=== PATIENT | male | born 1940 | race Caucasian/White ===

== ENCOUNTER 2016-11-11 17:28 | Inpatient (IN) | payer OTHER ==
[~2016-11-11] VITALS: Ht 172.7 cm; Wt 93.6 kg
[2016-11-11] VITALS (7 sets, daily range): BP systolic 114–139; BP diastolic 66–86; PULSE 94–120; TEMP 36.4–36.5; O2SAT 94–99; Ht 172.7 cm; Wt 93.6 kg
[2016-11-11] MEDS ORDERED: FUROSEMIDE 40 MG/4 ML VIAL IV STA (17:39)
[2016-11-11] MEDS ORDERED: NITROGLYCERIN OINT 2% 1GM PACKET EXT STA (17:39)
[2016-11-11] MEDS ORDERED: NITROGLYCERIN OINT 2% 1GM PACKET ONE (17:43)
[2016-11-11] MEDS ORDERED: ONDANSETRON INJ 2 MG/ML 2 ML VIAL IV STA (17:44)
[2016-11-11] MEDS ORDERED: CLOPIDOGREL BISULFATE 300 MG TAB PO STA (17:47)
[2016-11-11] MEDS ORDERED: ASPIRIN 81 MG CHEW PO STA (17:47)
--- NOTE | 2016-11-11 17:50 | DIAGNOSTIC IMAGING REPORT ---
CHEST ONE VIEW PORTABLE CLINICAL HISTORY: Cardiogenic chest pain COMPARISON STUDY: No previous studies for comparison. FINDINGS: There are postsurgical changes of a midline sternotomy. There are overlying cardiac electrodes. There are bilateral pulmonary airspace opacities, likely representing pulmonary edema. There is blunting of the left lateral costophrenic angle.[ IMPRESSION: Extensive bilateral pulmonary edema pattern Electronically signed by: Luke Smith M.D. 11/11/2016 5:48 PM Dictated Date/Time: 11/11/2016 5:47 PM
[2016-11-11] MEDS ORDERED: MoRPHine SULFATE 4 MG/ML 1 ML CARP\\VIAL IV STA (17:52)
[2016-11-11 17:56] LABS: BASO % 0.5 %; BASO ABS # 0.08 K/uL (0-0.2); COMPLETE YES; EOS % 1.6 %; HEMATOCRIT 45.2 % (42-52); IG% 0.4 %; LYMPH % 24.1 %; LYMPH ABS # 3.89 K/uL (1.2-3.4); MEAN CELL VOLUME 95.6 fL (80-100); MEAN CORPUSCULAR HEMOGLOBIN 33.2 pg (25-34); MEAN CORPUSCULAR HGB CONC 34.7 g/dl (32-36); MEAN PLATELET VOLUME 10.8 fL (7.4-10.4); MONO % 10.4 %; PLATELET COUNT 265 K/uL (130-400); RED BLOOD COUNT 4.73 M/uL (4.7-6.1); WHITE BLOOD COUNT 16.11 K/uL (4.8-10.8)
[2016-11-11] MEDS ORDERED: NovoLIN-R INSULIN PER UNIT CHARGE IV STA (17:59)
[2016-11-11] MEDS ORDERED: NiCARDipine HCL INJ 2.5 MG/ML 10 ML AMP ONE (18:00)
[2016-11-11] MEDS ORDERED: HEPARIN SOD (PORCINE) 1000 UNIT/ML 10 ML VIAL ONE (18:00)
[2016-11-11] MEDS ORDERED: NITROGLYCERIN/D5W 100MCG/ML 20ML SYR ONE (18:00)
[2016-11-11] MEDS ORDERED: FENTANYL CITRATE INJ 50 MCG/1 ML 2 ML VIAL ONE (18:01)
[2016-11-11] MEDS ORDERED: MIDAZOLAM HCL 1 MG/ML 2ML VIAL ONE (18:01)
[2016-11-11] MEDS ORDERED: METF1000 PO (18:02)
[2016-11-11] MEDS ORDERED: ASPI81TA28 PO (18:02)
[2016-11-11] MEDS ORDERED: CARV6.252 PO (18:02)
[2016-11-11] MEDS ORDERED: ISOS60TA25 PO (18:02)
[2016-11-11] MEDS ORDERED: CLOP1TAB15 PO (18:02)
[2016-11-11] MEDS ORDERED: ATOR-26 PO (18:02)
[2016-11-11] MEDS ORDERED: RAMI2.5C PO (18:02)
[2016-11-11 18:05] LABS: ISTAT CREATININE 1.4 mg/dl (0.6-1.3); ISTAT HEMOGLOBIN 16.3 g/dl (14.0-18.0); ISTAT IONIZED CALCIUM 1.15 mmol/l (1.12-1.32)
--- NOTE | 2016-11-11 18:12 | EMERGENCY ROOM VISIT NOTE ---
History Report prepared by Ninfa: Ansley Landry Under the Supervision of: Dr. Av Edouard M.D. First contact with patient: 17:35 Chief Complaint: CHEST PAIN Stated Complaint: CHEST/STOMACH PAIN, TROUBLE BREATHING History of Present Illness The patient is a 76 year old male who presents to the Emergency Room with complaints of worsening chest pain for the past 3.5 hours. The patient was at lunch at a buffet with his son when he started experiencing chest pain. Initially they thought it was indigestion, as the patient has a history of acid reflux. They went to [place] and the patient's chest pain worsened. He left [facility] and sat in the car because his pain was so severe. He started feeling short of breath and nauseated. He had multiple episodes of vomiting. Son states that the patient was audibly wheezing after vomiting. He brought the patient to the ED. The patient is currently experiencing chest pain that he rates as a 7/10 in severity. He did not take any nitro or aspirin today. The patient has a history of quadruple bypass surgery in 1992 that was done at a hospital in [place], [place]. He missed his dose of Metformin this morning. Source of History: patient, family (son) Onset: 3.5 hours ago Position: chest Symptom Intensity: 7/10 Timing: worsening Modifying Factors (Worsening): eating Associated Symptoms: + SOB, + nausea, + vomiting Review of Systems See HPI for pertinent positives & negatives. A total of 10 systems reviewed and were otherwise negative. Past Medical & Surgical Medical Problems: (1) Acid reflux (2) Diabetes mellitus (3) Hypertension (4) Unstable angina Surgical Problems: (1) History of quadruple bypass Family History Diabetes mellitus Heart disease Hypertension Social History Smoking Status: Unknown if Ever Smoked Smokeless Tobacco Use: No Alcohol Use: occasionally Drug Use: none Housing Status: lives with family Occupation Status: retired Current/Historical Medications Scheduled Aspirin (Aspirin Ec), 81 MG PO DAILY Atorvastatin (Lipitor), 80 MG PO DAILY Carvedilol (Coreg), 6.25 MG PO BID Clopidogrel (Plavix), 75 MG PO DAILY Isosorbide Mononitrate Ext Rel (Imdur Ext Rel), 60 MG PO QAM Metformin Hcl (Glucophage), 1,000 MG PO BID Ramipril (Ramipril), 2.5 MG PO DAILY Allergies Coded Allergies: No Known Allergies (Unverified , 11/11/16) Physical Exam Vital Signs Date Time Temp Pulse Resp B/P Pulse Ox O2 Delivery O2 Flow Rate FiO2 11/11/16 18:55 114 23 166/102 100 11/11/16 18:25 113 22 157/109 100 Room Air 11/11/16 18:11 120 99 11/11/16 18:01 106 11/11/16 18:00 113 28 156/83 98 BiPAP Physical Exam GENERAL: Patient is a welch-appearing well-nourished 76 year old male in acute distress. HEAD: Normocephalic atraumatic EYES: Ocular movements intact pupils equal and react to light OROPHARYNX mucous membranes are moist no exudates present no erythema or edema present NECK: Supple no nuchal rigidity CHEST: Good equal expansion LUNGS: Rales bilaterally CARDIAC: Normal S1 and S2 ABDOMEN: Soft nontender no guarding BACK: No CVA tenderness EXTREMITIES: No pain upon palpation normal muscle strength in all groups no clubbing cyanosis or edema NEURO: Patient is following commands is answering questions appropriately. Alert and oriented x3 Cranial Nerves 2-12 grossly intact Medical Decision & Procedures ER Provider Diagnostic Interpretation: A repeat ECG as interpreted by myself reveals sinus tachycardia at 113, ST depressions in leads 1 and AVL, no ectopy. Radiology results as stated below per my review and radiologist interpretation: CHEST ONE VIEW PORTABLE CLINICAL HISTORY: Cardiogenic chest pain COMPARISON STUDY: No previous studies for comparison. FINDINGS: There are postsurgical changes of a midline sternotomy. There are overlying cardiac electrodes. There are bilateral pulmonary airspace opacities, likely representing pulmonary edema. There is blunting of the left lateral costophrenic angle. IMPRESSION: Extensive bilateral pulmonary edema pattern Electronically signed by: Luke Smith M.D. 11/11/2016 5:48 PM Dictated Date/Time: 11/11/2016 5:47 PM Laboratory Results 11/11/16 17:44 Red Blood Count 4.73, Mean Corpuscular Volume 95.6, Mean Corpuscular Hemoglobin 33.2, Mean Corpuscular Hemoglobin Concent 34.7, Mean Platelet Volume 10.8, Neutrophils (%) (Auto) 63.0, Lymphocytes (%) (Auto) 24.1, Monocytes (%) (Auto) 10.4, Eosinophils (%) (Auto) 1.6, Basophils (%) (Auto) 0.5, Neutrophils # (Auto ) 10.15, Lymphocytes # (Auto) 3.89, Monocytes # (Auto) 1.67, Eosinophils # (Auto ) 0.26, Basophils # (Auto) 0.08 11/11/16 17:44 Test 11/11/16 17:44 11/11/16 17:49 11/11/16 17:50 White Blood Count 16.11 K/uL (4.8-10.8) Red Blood Count 4.73 M/uL (4.7-6.1) Hemoglobin 15.7 g/dL (14.0-18.0) Hematocrit 45.2 % (42-52) Mean Corpuscular Volume 95.6 fL (80-100) Mean Corpuscular Hemoglobin 33.2 pg (25-34) Mean Corpuscular Hemoglobin Concent 34.7 g/dl (32-36) Platelet Count 265 K/uL (130-400) Mean Platelet Volume 10.8 fL (7.4-10.4) Neutrophils (%) (Auto) 63.0 % Lymphocytes (%) (Auto) 24.1 % Monocytes (%) (Auto) 10.4 % Eosinophils (%) (Auto) 1.6 % Basophils (%) (Auto) 0.5 % Neutrophils # (Auto) 10.15 K/uL (1.4-6.5) Lymphocytes # (Auto) 3.89 K/uL (1.2-3.4) Monocytes # (Auto) 1.67 K/uL (0.11-0.59) Eosinophils # (Auto) 0.26 K/uL (0-0.5) Basophils # (Auto) 0.08 K/uL (0-0.2) RDW Standard Deviation 49.8 fL (36.4-46.3) RDW Coefficient of Variation 14.1 % (11.5-14.5) Immature Granulocyte % (Auto) 0.4 % Immature Granulocyte # (Auto) 0.06 K/uL (0.00-0.02) Estimated GFR () 44.4 Estimated GFR (Non- 38.3 BUN/Creatinine Ratio 14.3 (10-20) Calcium Level 8.6 mg/dl (8.5-10.1) Magnesium Level 2.5 mg/dl (1.8-2.4) Total Bilirubin 0.6 mg/dl (0.2-1) Direct Bilirubin 0.2 mg/dl (0-0.2) Aspartate Amino Transf (AST/SGOT) 67 U/L (15-37) Alanine Aminotransferase (ALT/SGPT) 66 U/L (12-78) Alkaline Phosphatase 100 U/L (45-117) Total Creatine Kinase 96 U/L (39-308) Creatine Kinase MB 3.2 ng/ml (0.5-3.6) Creatine Kinase MB Ratio 3.3 (0-3.0) Total Protein 7.9 gm/dl (6.4-8.2) Albumin 3.9 gm/dl (3.4-5.0) Lipase 104 U/L (73-393) Beta-Hydroxybutyric Acid 1.39 mg/dL (0.2-2.81) Bedside Hemoglobin 16.3 g/dl (14.0-18.0) Bedside Hematocrit 48 % (42-52) Bedside Sodium 139 mEq/L (135-144) Bedside Potassium 4.1 mEq/L (3.3-5.0) Bedside Chloride 105 mEq/L (101-112) Bedside Total CO2 21 mEq/l (24-31) Anion Gap 18.0 mmol/L (16-25) Bedside Blood Urea Nitrogen 25 mg/dl (7-18) Bedside Creatinine 1.4 mg/dl (0.6-1.3) Bedside Glucose (other) 380 mg/dl (70-99) Bedside Ionized Calcium (Christine) 1.15 mmol/l (1.12-1.32) Bedside Troponin I 0.070 ng/ml (0-0.045) Date/Time Source Procedure Growth Status 11/11/16 00:00 Nasal MRSA DNA Surveillance Screen - Final Specimen Negative for MRSA by DNA Probe Complete Labs reviewed by ED physician. Medications Administered Medications (Trade) Dose Ordered Sig/Maximiliano Route Start Time Stop Time Status Last Admin Dose Admin Furosemide (Lasix Inj) 40 mg NOW STAT IV 11/11/16 17:39 11/11/16 17:41 DC 11/11/16 17:47 40 MG Nitroglycerin (Nitroglycerin 2% Oint) 1 inch NOW STAT EXT 11/11/16 17:39 11/11/16 17:41 DC 11/11/16 17:47 1 INCH Ondansetron HCl (Zofran Inj) 4 mg NOW STAT IV 11/11/16 17:44 11/11/16 17:46 DC 11/11/16 17:56 4 MG Aspirin (Aspirin Chew) 324 mg NOW STAT PO 11/11/16 17:47 11/11/16 17:48 DC 11/11/16 17:56 324 MG Clopidogrel Bisulfate (plAVix TAB) 300 mg NOW STAT PO 11/11/16 17:47 11/11/16 17:48 DC 11/11/16 17:56 300 MG Morphine Sulfate (MoRPHine SULFATE INJ) 4 mg NOW STAT IV 11/11/16 17:52 11/11/16 17:53 DC 11/11/16 17:56 4 MG Insulin Human Regular 10 units 10 units NOW STAT IV 11/11/16 17:59 11/11/16 18:00 DC 11/11/16 19:49 10 UNITS Nitroglycerin/ Dextrose (Nitroglycerin/ D5w 100 Mcg/Ml) 500 ml @ 0 mls/hr Q0M STAT IV 11/11/16 18:29 11/11/16 18:30 DC 11/11/16 18:57 6 MLS/HR Heparin Sodium/ Dextrose (Heparin 25,000 Unit/500ml D5W) 25,000 unit STK-MED ONCE .ROUTE 11/11/16 18:32 11/11/16 18:33 DC 11/11/16 20:18 25,000 UNIT Heparin Sodium (Porcine) (Heparin Sq 5000 Unit/0.5ml) 10,000 unit STK-MED ONCE .ROUTE 11/11/16 18:32 11/11/16 18:33 DC 11/11/16 19:00 6,000 UNIT ECG Indication: chest pain Rate (beats per minute): 101 Rhythm: sinus tachycardia Findings: ST depression (in leads 1 and AVL), ST elevation (V1, V2, V3), no ectopy Comparison ECG Date: no prior available ED Course 1734: Past medical records reviewed. The patient was evaluated in room B1. A complete history and physical examination was performed. A heart alert was called in the emergency department. 1738: Nitroglycerin 1 inch EXT, Lasix 40 mg IV 1743: At this time I spoke with Dr. Morrell of cardiology. We discussed the patient's results and treatment plan. He wants to stabilize the patient's breathing before taking him to the environmental laboratory technician. The patient was placed on BiPAP at this time. 1744: Zofran 4 mg IV 1747: Plavix 300 mg PO, Aspirin 324 mg PO , Heparin Sodium/Dextrose bolus and drip 175: Morphine sulfate 4 mg IV 175: Insulin Human Regular 10 units IV 1800: Nitroglycerin/Dextrose IV, Cardene 25 mg IV 180: Fentanyl 100 mcg IV, Versed 2 mg IV 1825: Dr. Morrell and I discussed the patient's treatment plan at this time. He recommended admitting to medicine and he will follow up with the patient in the hospital. 183: I spoke with Dr. Lozada. We discussed the patients results and treatment plan. The patient will be evaluated by the [facility] for further management. 1835: I reassessed the patient at this time. He is feeling better and resting comfortably. I discussed the results and treatment plan with the patient and his son. I answered all pertaining questions that they had. They expressed understanding and verbalized agreement. 1840: I spoke with Dr. Dowd, the bottle blower. We discussed the patient's results and treatment plan. Medical Decision Differential diagnosis: Etiologies such as cardiac ischemia, aortic dissection, pulmonary embolism, pneumonia, pneumothorax, musculoskeletal, infections, pericarditis, myocarditis , esophageal rupture, gastrointestinal, as well as others were entertained. This is a 76-year-old male who presents emergency department in acute distress. HEENT the patient is hypoxic and was immediately placed on oxygen. He was placed on a monitor. His EKG was concerning for ST elevations in the anterior leads as well as depressions in the lateral leads. However he is respiratory delong unstable. For this reason he was started on Lasix and placed on BiPAP. He had immediate improvement in his breathing. The patient was also placed on a nitro drip as well as a heparin drip. I did consult cardiology who asked that the patient be started on aspirin and Plavix. The patient had much improvement in his symptoms. It was felt that the patient needed to be stabilized before going to the Manufacturers Service Representative and after treatments his chest pain went away and his EKG normalized. Based on these findings I did discuss the case with both the hospitalist as well as the bottle blower. Patient and family were in agreement with the treatment plan. Consults Time Called: 174 Consulting Physician: Dr. Morrell Returned Call: 174 At this time I spoke with Dr. Morrell of cardiology. We discussed the patient's results and treatment plan. He wants to stabilize the patient's breathing before taking him to the environmental laboratory technician. Additional Consults: Time Called: 183 Consulted Physician: Dr. Lozada Returned Call: 183 Additional Comments: I spoke with Dr. Lozada. We discussed the patients results and treatment plan. The patient will be evaluated by the [facility] for further management. Time Called: 183 Consulted Physician: Dr. Dowd Returned Call: 1840 Additional Comments: I spoke with Dr. Dowd, the bottle blower. We discussed the patient's results and treatment plan. Impression Primary Impression: Acute pulmonary edema Critical Care I have personally spent greater than 90 minutes of critical care time in the direct management of this patient. This includes bedside care, interpretation of diagnostic studies, and testing, discussion with consultants, patient, and family members, and other required patient management activities. This 90 minutes is in excess of all separately billable procedures. Scribe Attestation The scribe's documentation has been prepared under my direction and personally reviewed by me in its entirety. I confirm that the note above accurately reflects all work, treatment, procedures, and medical decision making performed by me. Departure Information Dispostion Being Evaluated By Hospitalist Referrals No Doctor, Assigned (PCP) Patient Instructions A Signature Page, My [facility]
[2016-11-11 18:14] LABS: ALT/SGPT 66 U/L (12-78); AST/SGOT 67 U/L (15-37); BLOOD UREA NITROGEN 24 mg/dl (7-18); BUN/CREATININE RATIO 14.3 (10-20); CALCIUM 8.6 mg/dl (8.5-10.1); CARBON DIOXIDE 22 mmol/L (21-32); CHLORIDE 105 mmol/L (98-107); GLUCOSE 370 mg/dl (70-99); MAGNESIUM 2.5 mg/dl (1.8-2.4); SODIUM 139 mmol/L (136-145)
[2016-11-11 18:23] LABS: ALKALINE PHOSPHATASE 100 U/L (45-117); BETA-HYDROXYBUTYRATE 1.39 mg/dL (0.2-2.81); CKMB/CK RATIO 3.3 (0-3.0)
[2016-11-11] MEDS ORDERED: NITROGLYCERIN/D5W 100 MCG/ML 500 ML IV STA (18:29)
[2016-11-11] MEDS ORDERED: HEPARIN SOD 5000 UNIT/0.5 ML CARP ONE (18:32)
[2016-11-11] MEDS ORDERED: HEPARIN 25000 UNIT/500 ML D5W ONE (18:32)
[2016-11-11] MEDS ORDERED: LORAZEPAM 1 MG TAB PO PRN (19:00)
[2016-11-11] MEDS ORDERED: LORAZEPAM 2 MG/ML 1 ML VIAL IV PRN (19:00)
[2016-11-11] MEDS ORDERED: ACETAMINOPHEN 325 MG TAB PO PRN (19:00)
[2016-11-11] MEDS ORDERED: NITROGLYCERIN/D5W 100 MCG/ML 250 ML IV PRN (19:00)
[2016-11-11] MEDS ORDERED: MoRPHine SULFATE 4 MG/ML 1 ML CARP\\VIAL IV PRN (19:00)
[2016-11-11] MEDS ORDERED: MoRPHine SULFATE 2 MG/ML CARP IV PRN (19:00)
[2016-11-11] MEDS ORDERED: METOPROLOL TARTRATE 1 MG/ML VIAL IV PRN (19:00)
[2016-11-11] MEDS ORDERED: LORAZEPAM 0.5 MG TAB PO PRN (19:00)
--- NOTE | 2016-11-11 19:34 | CARDIOLOGY CONSULTATION ---
DATE OF CONSULTATION: 11/11/2016 REASON FOR CONSULTATION: Heart alert. CONSULTATION REQUESTED BY: Dr. Edouard. HISTORY OF PRESENT ILLNESS: Mr. Lugo is a 76-year-old male with a history of coronary artery disease status post a 4-vessel CABG in 1992, hypertension, diabetes, who was brought ED in the setting of chest pain and shortness of breath. Heart alert called for possible ST elevations. History obtained from patient and his son as patient was initially in distress. Evidently, patient was here in town to go shopping, had gone out for lunch to a buffett when soon thereafter developed chest pain and progressive dyspnea this was approximately 2:00 PM. Symptoms also accompanied by nausea. Dyspne progressed to the point where the patient was unable to get out of his car due to shortness of breath and as a result brought to ED. In ED was hypertensive, tachycardic and hypoxic with initial sats down to the 60s. The patient was placed on a nonrebreather and eventual BiPAP. A chest x-ray showed diffuse pulmonary edema and initial EKG showed sinus tachycardia and a ventricular rate of 101 with questionable LVH, possible old anterior infarct and lateral ST changes, question ischemia versus repolarization abnormality. There was initial concern for possible ST elevations in V1 through V3 and as a result, a heart alert was called. At time of initial interview the patient endorsed a 7/10 chest pain, he was started on a nitro paste, given one 40 mg of Lasix before receiving ASA, plavix and heparin. Following these interventions breathing improved, chest pain largely resolved and he was able to lie flat on BiPAP satting 100% on room air. Repeat EKG showed sinus rhythm without evidence of elevations and borderline lateral ST changes again, ischemia versus repolarization. As the patient was largely chest pain free, hemodynamically, electrically stable without ST elevations on ECG, decision was made to forgo urgent catheterization. Discussed with the Emergency Room physician and will admit to ICU. PAST MEDICAL HISTORY: 1. Coronary artery disease status post a 4-vessel CABG in 1992 in [place], [place]. 2. Hypertension. 3. Diabetes. 4. GERD. FAMILY HISTORY: Noncontributory. SOCIAL HISTORY: The patient is retired. He lives with his family. Drinks occasionally. Denies significant tobacco. REVIEW OF SYSTEMS: Ten point limited review of systems was completed due to severe distress but otherwise negative unless stated in HPI. HOME MEDICATIONS: Aspirin 81, atorvastatin 80, Coreg 6.25, Plavix 75, isosorbide mononitrate 60, metformin and ramipril. PHYSICAL EXAMINATION: VITAL SIGNS: Afebrile, heart rate 100s-110s, satting 100% on BiPAP. Blood pressure is 156/94. GENERAL: The patient appears comfortable at present, in no acute distress. HEENT: His sclerae are anicteric. His oropharynx is clear. His mucous membranes are moist. NECK: Notable for JVD. LUNGS: Coarse throughout without distinct rales. HEART: Regular with distant heart sounds and unable to appreciate any murmurs, rubs or gallops. ABDOMEN: Soft, nontender, nondistended with positive bowel sounds. EXTREMITIES: Warm. He has trace lower extremity edema, intact distal pulses. NEUROLOGIC: Cranial nerves II-XII are grossly intact. Remainder of exam is nonfocal. LABORATORY DATA: Sodium 139, potassium 4.0, BUN 24, creatinine of 1.7, glucose of 370. CK-MB of 3.2. Initial troponin of 0.7. White blood cell count 16.1, hemoglobin of 15.7, and platelets of 265. IMAGING: Chest x-ray shows extensive bilateral pulmonary edema. IMPRESSION AND PLAN: 1. Acute decompensated heart failure. 2. Chest pain/Questionable NSTEMI 3. History of coronary artery disease status post 4-vessel coronary artery bypass grafting. 4. Hypertension. 5. History of diabetes. 6. Renal failure. Patient present with acute onset of shortness of breath and chest pain, found to be in acute heart failure with significant pulmonary edema. With intervention in the ED including BiPAP, nitrates and diuretics, the patient 's chest pain has largely resolved, is no longer is respiratory distress and remains hemodynamically stable. Repeat EKG is reassuring with only mild lateral ST abnormalities. In that setting, will defer urgent cardiac catheterization at this time. Will plan to trend troponins and check echocardiogram in the a.m. If recurrent pain, continued rise in cardiac enzymes may need cardiac catheterization tomorrow. In the interim, though recommend continued diuresis, IV nitroglycerin , and home beta-jerman. Would continue on aspirin, Plavix and heparin infusion overnight. Will reassess need for catheterization in the AM. Findings discussed with Dr. Edouard. Cardiology service will continue to follow. SHANTAL
[2016-11-11] MEDS ORDERED: GLUCOSE 40% GEL 15 GM TUBE PO PRN (19:45)
[2016-11-11] MEDS ORDERED: GLUCOSE 10 TABS/TUBE PO PRN (19:45)
[2016-11-11] MEDS ORDERED: DEXTROSE 50% 50 ML SYR IV PRN (19:45)
[2016-11-11] MEDS ORDERED: GLUCAGON FOR INJ 1 MG VIAL SQ PRN (19:45)
[2016-11-11 19:53] LABS: PARTIAL THROMBOPLASTIN RATIO 3.8
[2016-11-11] MEDS ORDERED: HEPARIN 25,000 UNIT/500ML D5W 500 ML IV PRN (20:15)
--- NOTE | 2016-11-11 20:16 | HISTORY & PHYSICAL EXAMINATION ---
DATE OF ADMISSION: 11/11/2016 CHIEF COMPLAINT: Chest pain. ADMITTING DIAGNOSIS: ST elevation myocardial infarction. HISTORY OF PRESENT ILLNESS: Mr. Lugo is a 76-year-old male who had his first presentation in our facility. He does have a history of coronary artery disease having had a CABG in 1992, at an outside facility. The patient reportedly was having some chest pain throughout the day. This was associated with increasing shortness of breath. The patient did eat out at a restaurant buffet. He continued to have progressive substernal chest pain rated 7/10. That he had no radiation according to me, although my history is limited as was described to him through a BiPAP mask. The patient then progressively worsened with his symptoms and because of we were the nearest hospital presented to our facility in any acute distress. Upon initial presentation, his pulse was 106. He was in acute respiratory failure due to hypoxic, pulmonary edema. The patient was immediately placed on BiPAP. He was given nitroglycerin paste, aspirin 325, Plavix 300, Lasix 40 IV, for blood pressure control he was given fentanyl 100 mcg and on nicardipine 25. He was seen in consultation by Jon Morrell, supplier diversity director. After the above listed interventions his initial ST elevations seen on his EKG did resolve. These were most prominently elevated in V1, V2 and V3 with reciprocal depressions in V6 lead I. Subsequently, as the patient's pain decreased from 7/10 to 4/10, it was felt the best to be placed to the intensive care unit on a nitroglycerin drip with attempts to medically stabilize him and possibly proceed with a cardiac catheterization in the morning. PAST MEDICAL HISTORY: As above with known coronary artery disease. He is also typically diabetic who takes metformin. He is usually on aspirin and PLAVIX. MEDICATIONS: Aspirin 81, Plavix 75, atorvastatin 80, carvedilol 6.25 b.i.d., Ramipril 2.5 a day, metformin 1000 b.i.d., and isosorbide mononitrate 60 q.a.m. SOCIAL HISTORY: The patient says he has occasionally had been a smoker and a drinker. He lives with his family. He is currently retired. FAMILY HISTORY: For diabetes mellitus, heart disease and hypertension; has a personal history outside of diabetes, hypertension and bypass includes acid reflux. REVIEW OF SYSTEMS: Limited due to the patient's acute distress. He is having substernal chest pressure currently, but he does not feel short of breath. Otherwise, 10 systems were reviewed and are negative. PHYSICAL EXAMINATION: VITAL SIGNS: He is afebrile, his pulse though was 100-110. His respiration rate is 22. His pulse ox on BiPAP is 100%. His blood pressure is markedly elevated at 150/106. HEENT: PERRL, EOMI. NEUROLOGICALLY: He is awake, alert and appropriate. Cranial nerves II-XII are intact. He has good hub lead strength. He can bilaterally move both legs. BiPAP prevents oropharynx examination. NECK: With trachea midline. He had been given Lasix. There is no current JVD. HEART: Tachycardic. I hear no murmurs. LUNGS: With BiPAP are coarse, but no rales or focal air loss. ABDOMEN: Normoactive bowel sounds, soft, nontender and no bruits. EXTREMITIES: Without cyanosis, clubbing or edema. LABORATORY DATA: White count 16, H\T\H 15 and 45, platelet count 265. His BUN and creatinine are 24 and 1.7. Magnesium is high at 2.5. LFTs are normal. His initial troponin 0.07. His coag studies are pending. Urinalysis is pending. IMAGING DATA: Chest x-ray shows florid bilateral pulmonary edema. EKG as mentioned is a sinus mechanism with ST and T-wave changes. ASSESSMENT: A 76-year-old male with known coronary disease who is on chronic nitrates presents with ST elevation myocardial infarction resolved with initial medical management. PLAN: The patient will be put in our intensive care unit. For his acute myocardial infarction/unstable angina, the patient will be continued on nitro drip, heparin drip. He will be continued on his Coreg, he will have p.r.n. metoprolol, will use morphine for pain and discomfort and he will consult Dr. Morrell. For his diabetes, we will hold his metformin due to the possibility of an upcoming catheterization, will use insulin sliding scale. He is kept n.p.o. currently for the possibility of an intervention as he is in an unstable condition and therefore will not need to use any long-acting insulin. We will maintain his secondary risk factor modification of atorvastatin. There will be hammer runner consult, I personally did speak with Dr. Justice Dowd, regarding this patient's management. SHANTAL
[2016-11-11 20:31] LABS: URINE APPEARANCE CLEAR (CLEAR); URINE BILIRUBIN NEG (NEG); URINE COLOR YELLOW; URINE NITRITE NEG (NEG); URINE SPECIFIC GRAVITY 1.005 (1.000-1.030); UROBILINOGEN NEG (NEG)
[2016-11-11 20:32] LABS: MANUAL MICROSCOPIC REQUIRED? NO; REVIEW REQ? NO
[2016-11-11] MEDS ORDERED: LORAZEPAM INJ 1 MG in SYRINGE 0.5 ML IV PRN (21:00)
--- NOTE | 2016-11-11 21:40 | Critical Care Consultation ---
Critical Care Consultation Date of Consultation: Nov 11, 2016. Attending Physician: Berenice Parrish DO Reason for Consultation: Unstable angina History of Present Illness Patient is a 76 year-old male with hx of CAD s/p CABGx4 in 1992 who presented to the ED with chest pain and respiratory distress. He was seen in the ED by cardiology for possible STEMI. He was treated for CHF and acute pulmonary edema and the EKG changes improved. Treatment for unstable angina was started. When I saw the patient in the ED, he has a 4/10 central chest discomfort without radiation. He was just being started on a nitroglycerin infusion. Family History Diabetes mellitus Heart disease Hypertension Social History Smoking Status: Former Smoker (20 pack year hx quit in ) Smokeless Tobacco Use: No Alcohol Use: occasionally (no daily use, never experienced withdraw symptoms) Drug Use: none Housing Status: lives with family Occupation Status: retired Allergies Coded Allergies: No Known Allergies (Unverified , 11/11/16) Home Medications Scheduled Aspirin (Aspirin Ec), 81 MG PO DAILY Atorvastatin (Lipitor), 80 MG PO DAILY Carvedilol (Coreg), 6.25 MG PO BID Clopidogrel (Plavix), 75 MG PO DAILY Isosorbide Mononitrate Ext Rel (Imdur Ext Rel), 60 MG PO QAM Metformin Hcl (Glucophage), 1,000 MG PO BID Ramipril (Ramipril), 2.5 MG PO DAILY Current Inpatient Medications Current Inpatient Medications Medications (Trade) Dose Ordered Sig/Maximiliano Route Start Time Stop Time Status Last Admin Dose Admin Aspirin (Ecotrin Tab) 81 mg DAILY PO 11/12/16 09:00 12/12/16 08:59 Atorvastatin Calcium (Lipitor Tab) 80 mg DAILY PO 11/12/16 09:00 12/12/16 08:59 Carvedilol (Coreg Tab) 6.25 mg BID PO 11/11/16 21:00 12/11/16 20:59 Clopidogrel Bisulfate (plAVix TAB) 75 mg DAILY PO 11/12/16 09:00 12/12/16 08:59 Enalapril Maleate (Vasotec Tab) 10 mg DAILY PO 11/12/16 09:00 12/12/16 08:59 Acetaminophen (Tylenol Tab) 650 mg Q4H PRN PO 11/11/16 19:00 12/11/16 18:59 Lorazepam (Ativan Tab) 0.5 mg Q4H PRN PO 11/11/16 19:00 12/11/16 18:59 Lorazepam (Ativan Tab) 1 mg Q6H PRN PO 11/11/16 19:00 12/11/16 18:59 Lorazepam 1 mg 1 mg Q6H PRN IV 11/11/16 19:00 12/11/16 18:59 Pantoprazole Sodium/Syringe (Protonix Inj/ Syringe) 10 ml @ 5 mls/min DAILY IV 11/12/16 09:00 12/12/16 08:59 Morphine Sulfate (MoRPHine SULFATE INJ) 2 mg Q2H PRN IV 11/11/16 19:00 11/25/16 18:59 Morphine Sulfate 4 mg 4 mg Q2H PRN IV 11/11/16 19:00 11/25/16 18:59 Nitroglycerin/ Dextrose (Nitroglycerin/ D5w 100 Mcg/Ml) 250 ml @ 0 mls/hr Q0M PRN IV 11/11/16 19:00 12/11/16 18:59 Metoprolol Tartrate (Lopressor Iv) 5 mg Q4H PRN IV 11/11/16 19:00 12/11/16 18:59 Insulin Aspart (novoLOG ASPART) SLIDING SCALE PARAMETER ACHS SC 11/11/16 21:00 12/11/16 20:59 Glucose (Glucose 40% Gel) 15-30 GRAMS 15 GRAMS... UD PRN PO 11/11/16 19:45 12/11/16 19:44 Glucose (Glucose Chew Tab) 4-8 Tablets 4 Tabl... UD PRN PO 11/11/16 19:45 12/11/16 19:44 Dextrose (Dextrose 50% 50ML Syringe) 25-50ML OF 50% DW IV FOR... UD PRN IV 11/11/16 19:45 12/11/16 19:44 Glucagon 1 mg 1 mg UD PRN SQ 11/11/16 19:45 12/11/16 19:44 Heparin Sodium/ Dextrose 500 ml @ 29 mls/hr [id number] PRN IV 11/11/16 20:15 12/11/16 20:14 Lorazepam/Syringe (Ativan Inj/ Syringe) 1 ml @ 1 mls/min Q6H PRN IV 11/11/16 21:00 12/11/16 20:59 Review of Systems Constitutional: No chills, No fatigue, No fever, No problem reported, No sweats , No weakness, No weight loss Eyes: No diplopia, No discharge, No eye pain, No problem reported, No redness, No worsening of vision ENT: No dental problems, No hearing loss, No nasal symptoms, No problem reported, No sore throat, No tinnitus, No trouble swallowing, No unusual epistaxis Respiratory: + shortness of breath Cardiovascular: + chest pain, + edema Neurologic: No balance problems, No memory loss, No numbness/tingling, No paralysis, No problem reported, No vertigo, No weakness Integumentary: + rash (bilateral lower ext) Physical Exam Date Time Temp Pulse Resp B/P Pulse Ox O2 Delivery O2 Flow Rate FiO2 11/11/16 20:35 36.4 101 17 138/86 97 Nasal Cannula 3.0 11/11/16 20:20 105 20 97/67 97 11/11/16 20:00 105 21 105/75 98 BiPAP 100 11/11/16 19:35 107 20 149/79 100 BiPAP 11/11/16 19:30 107 22 133/93 100 Room Air 11/11/16 19:20 110 22 144/78 100 11/11/16 18:55 114 23 166/102 100 11/11/16 18:25 113 22 157/109 100 Room Air 11/11/16 18:11 120 99 11/11/16 18:01 106 11/11/16 18:00 113 28 156/83 98 BiPAP General Appearance: WD/WN, obese Head: normocephalic, atraumatic Eyes: PERRLA, no discharge, EOMI, sclerae normal Neck: no tenderness, trachea midline, no stridor, supple Respiratory: rhonchi Cardiovasular: regular rate/rhythm Abdomen: non tender, normal bowel sounds, no rebound, no masses Back: normal inspection Upper Extremities: no edema, no deformity Lower Extremities: edema Edema: Bilateral LE (1+) Pulses: carotid (R) (2+), carotid (L) (2+) Neuro: alert, oriented x 3, normal motor exam Laboratory Results Last 24 Hours Test 11/11/16 17:44 1/5/17 17:49 11/11/16 17:50 11/11/16 17:52 White Blood Count 16.11 K/uL Red Blood Count 4.73 M/uL Hemoglobin 15.7 g/dL Hematocrit 45.2 % Mean Corpuscular Volume 95.6 fL Mean Corpuscular Hemoglobin 33.2 pg Mean Corpuscular Hemoglobin Concent 34.7 g/dl Platelet Count 265 K/uL Mean Platelet Volume 10.8 fL Neutrophils (%) (Auto) 63.0 % Lymphocytes (%) (Auto) 24.1 % Monocytes (%) (Auto) 10.4 % Eosinophils (%) (Auto) 1.6 % Basophils (%) (Auto) 0.5 % Neutrophils # (Auto) 10.15 K/uL Lymphocytes # (Auto) 3.89 K/uL Monocytes # (Auto) 1.67 K/uL Eosinophils # (Auto) 0.26 K/uL Basophils # (Auto) 0.08 K/uL RDW Standard Deviation 49.8 fL RDW Coefficient of Variation 14.1 % Immature Granulocyte % (Auto) 0.4 % Immature Granulocyte # (Auto) 0.06 K/uL Sodium Level 139 mmol/L Potassium Level 4.0 mmol/L Chloride Level 105 mmol/L Carbon Dioxide Level 22 mmol/L Anion Gap 12.0 mmol/L 18.0 mmol/L Blood Urea Nitrogen 24 mg/dl Creatinine 1.70 mg/dl Estimated GFR () 44.4 Estimated GFR (Non- 38.3 BUN/Creatinine Ratio 14.3 Random Glucose 370 mg/dl Calcium Level 8.6 mg/dl Magnesium Level 2.5 mg/dl Total Bilirubin 0.6 mg/dl Direct Bilirubin 0.2 mg/dl Aspartate Amino Transf (AST/SGOT) 67 U/L Alanine Aminotransferase (ALT/SGPT) 66 U/L Alkaline Phosphatase 100 U/L Total Creatine Kinase 96 U/L Creatine Kinase MB 3.2 ng/ml Creatine Kinase MB Ratio 3.3 Total Protein 7.9 gm/dl Albumin 3.9 gm/dl Lipase 104 U/L Beta-Hydroxybutyric Acid 1.39 mg/dL Bedside Hemoglobin 16.3 g/dl Bedside Hematocrit 48 % Bedside Sodium 139 mEq/L Bedside Potassium 4.1 mEq/L Bedside Chloride 105 mEq/L Bedside Total CO2 21 mEq/l Bedside Blood Urea Nitrogen 25 mg/dl Bedside Creatinine 1.4 mg/dl Bedside Glucose (other) 380 mg/dl Bedside Ionized Calcium (Christine) 1.15 mmol/l Bedside Troponin I 0.070 ng/ml Bedside Glucose 332 mg/dl Test 11/11/16 19:25 11/11/16 20:11 11/11/16 20:18 Activated Partial Thromboplast Time 98.4 SECONDS Partial Thromboplastin Ratio 3.8 Urine Color YELLOW Urine Appearance CLEAR Urine pH 5.0 Urine Specific [place] 1.005 Urine Protein TRACE Urine Glucose (UA) 2+ Urine Ketones NEG Urine Occult Blood 2+ Urine Nitrite NEG Urine Bilirubin NEG Urine Urobilinogen NEG Urine Leukocyte Esterase NEG Urine WBC (Auto) 0 /hpf Urine RBC (Auto) 10-30 /hpf Urine Hyaline Casts (Auto) 0 /lpf Urine Epithelial Cells (Auto) 5-10 /lpf Urine Bacteria (Auto) NEG Bedside Glucose 352 mg/dl Assessment & Plan (1) Unstable angina Heparin Gtt Nitro Gtt EKG in AM Cardiology following ECHO pending (2) Hyperglycemia due to type 2 diabetes mellitus Poorly controlled, Sliding scale used, will convert to insulin gtt if unable to control quickly (3) Diabetes mellitus Poorly controlled, Sliding scale used, will convert to insulin gtt if unable to control quickly (4) Acute respiratory failure with hypoxia secondary to CHF/Volume Overload - aggressive diuresis BiPAP (5) Acute pulmonary edema Lasix given CPAP (6) Acute electrocardiogram changes EKG in AM (7) Smoking history 20 pack year history Quit in 's DVT: On heparin GI: on PPI as outpatient I have personally spent 60 minutes of critical care time in the direct management of this patient. This is a life/limb threatening event. This includes time spent evaluating patient, direct bedside care, chart review, placing orders, interpretation of diagnostic studies, discussion with consultants, patient, and family members, as well as other required patient management activities. This time is exclusive of all separately billable procedures, and teaching time and separate from and in addition to any other critical care service time.
[2016-11-11] MEDS: CARVEDILOL 6.25 MG TAB PO SCH (21:42)
[2016-11-11] MEDS ORDERED: PNEUMOCOCCAL ADMINISTRATION CHARGE ONE (22:15)
[2016-11-11] MEDS ORDERED: INFLUENZA VIRUS QUAD VACCINE 0.5 ML SYR IM. ONE (22:15)
[2016-11-11] MEDS ORDERED: PNEUMOCOCCAL POLYSACCHARIDES 25 MCG/0.5 ML VIAL/SYR IM. ONE (22:15)
[2016-11-11] MEDS ORDERED: INFLUENZA ADMINISTRATION CHARGE ONE (22:15)
[2016-11-11 23:08] LABS: INFLUENZA A PCR Neg for Influ A (NEG); INFLUENZA B PCR Neg for Influ B (NEG)
[2016-11-11] MEDS: INSULIN ASPART 100 UNITS/ML 3 ML PEN SC SCH (23:08)
[2016-11-12] VITALS (20 sets, daily range): BP systolic 77–136; BP diastolic 40–68; PULSE 74–110; TEMP 36.4–36.7; O2SAT 94–97
[2016-11-12 00:47] LABS: PARTIAL THROMBOPLASTIN RATIO 2.3
[2016-11-12 02:46] LABS: BASO % 0.3 %; BASO ABS # 0.03 K/uL (0-0.2); COMPLETE YES; HEMATOCRIT 39.1 % (42-52); IG% 0.2 %; LYMPH % 12.7 %; LYMPH ABS # 1.24 K/uL (1.2-3.4); MEAN CELL VOLUME 94.4 fL (80-100); MEAN CORPUSCULAR HEMOGLOBIN 32.4 pg (25-34); MEAN CORPUSCULAR HGB CONC 34.3 g/dl (32-36); MEAN PLATELET VOLUME 10.4 fL (7.4-10.4); MONO % 13.1 %; NEUT % 72.7 %; PLATELET COUNT 156 K/uL (130-400); RED BLOOD COUNT 4.14 M/uL (4.7-6.1); WHITE BLOOD COUNT 9.73 K/uL (4.8-10.8)
[2016-11-12 03:15] LABS: BUN/CREATININE RATIO 21.2 (10-20); CALCIUM 8.4 mg/dl (8.5-10.1); CREATININE 1.4 mg/dl (0.60-1.40); POTASSIUM 4.8 mmol/L (3.5-5.1)
[2016-11-12] MEDS: INSULIN ASPART 100 UNITS/ML 3 ML PEN SC SCH ×4 (06:45→21:00)
[2016-11-12] MEDS ORDERED: PERFLUTREN LIPID MICROSPHERE (DEFINITY) IV ONE (07:06)
[2016-11-12] MEDS ORDERED: PANTOprazole INJ 40 MG in SYRINGE 0 ML IV SCH (09:00)
[2016-11-12] MEDS ORDERED: FUROSEMIDE 40 MG/4 ML VIAL IV STA (09:12)
[2016-11-12] MEDS ORDERED: FUROSEMIDE 40 MG/4 ML VIAL ONE (09:15)
[2016-11-12] MEDS ORDERED: ISOSORBIDE MONONITRATE 60 MG TABCR PO ONE (09:18)
[2016-11-12] MEDS: CLOPIDOGREL BISULFATE 75 MG TAB PO SCH (09:20)
[2016-11-12] MEDS: CARVEDILOL 6.25 MG TAB PO SCH ×2 (09:20→21:22)
[2016-11-12] MEDS: ATORVASTATIN 40 MG TAB PO SCH (09:20)
[2016-11-12] MEDS: ASPIRIN 81 MG ECTAB PO SCH (09:20)
[2016-11-12] MEDS: ENALAPRIL MALEATE 10 MG TAB PO SCH (09:20)
--- NOTE | 2016-11-12 09:32 | ECHOCARDIOGRAM REPORT ---
*NOTICE TO RECEIVING [employer] This information is strictly Confidential and protected under [place] law. [place] law prohibits you from making any further disclosure of this information unless further disclosure is expressly permitted by the written consent of the person to whom it pertains or is authorized by law. A general authorization for the release of medical or other information is not sufficient for this purpose. Hospital accepts no responsibility if the information is made available to any other person, INCLUDING THE PATIENT. Interpretation Summary * Name: ZAHEER BOLIVAR Study Date: 11/12/2016 07:43 AM BP: 103/60 mmHg * [facility] HR: 81 * : 1940 (M/d/yyy) Gender: Male Height: 70 in * Age: 76 yrs Ethnicity: [place] Weight: 205 lb * Ordering Physician: Nicolás Lozada * Referring Physician: Self, Referred * Performed By: Wanda Seals RCS * * Reason For Study: CHEST PAIN * BSA: 2.1 m2 -- Conclusions -- * LVEF 30-35%. * Moderate global hypokinesis of the left ventricle. Moderate LV and LA dilatation. * No significant valvular regurgitation or stenosis. Procedure Details * A complete two-dimensional transthoracic echocardiogram was performed (2D, M-mode, Doppler and color flow Doppler). Left Ventricle * The left ventricle is moderately dilated. * There is normal left ventricular wall thickness. * Ejection Fraction = 30-35%. * There is moderate global hypokinesis of the left ventricle. Right Ventricle * The right ventricle is grossly normal size. * The right ventricular systolic function is normal. Atria * The left atrium is moderately dilated. * The right atrium is mildly dilated. Mitral Valve * The mitral valve is not well visualized. * There is no mitral valve stenosis. * There is mild mitral regurgitation. Tricuspid Valve * The tricuspid valve is not well visualized. * There is no tricuspid stenosis. * Significant tricuspid regurgitation is absent. * Right ventricular systolic pressure is normal. Aortic Valve * The aortic valve is not well visualized. * Aortic valve sclerosis mild, without significant aortic valvular stenosis. * The aortic valve is tricuspid. The leaflet thickness if normal. There is no aortic stenosis, and no significant insufficiency. * No hemodynamically significant valvular aortic stenosis. * Trace aortic regurgitation. * There is no significant aortic regurgitation. Pulmonic Valve * The pulmonic valve is not well visualized. * There is no pulmonic valvular stenosis. MMode 2D Measurements and Calculations IVSd 1.5 cm IVSs 1.6 cm LVIDd 5.7 cm LVIDs 4.5 cm LVPWd 1.6 cm LVPWs 1.5 cm IVS/LVPW 0.95 FS 20.0 % EDV(Teich) 158.9 ml ESV(Teich) 94.8 ml EF(Teich) 40.3 % EDV(cubed) 183.4 ml ESV(cubed) 94.1 ml EF(cubed) 48.7 % % IVS thick 4.8 % % LVPW thick -20 % LV mass(C)d 403.2 grams LV mass(C)dI 191.2 grams/m\S\2 LV mass(C)s 294.1 grams LV mass(C)sI 139.5 grams/m\S\2 SV(Teich) 64.1 ml SI(Teich) 30.4 ml/m\S\2 SV(cubed) 89.4 ml SI(cubed) 42.4 ml/m\S\2 Ao root diam 3.3 cm Ao root area 8.8 cm\S\2 ACS 1.5 cm LA dimension 5.4 cm LA/Ao 1.6 LVOT diam 1.9 cm LVOT area 3.0 cm\S\2 LVAd ap4 42.6 cm\S\2 LVLd ap4 8.9 cm EDV(MOD-sp4) 164.9 ml EDV(sp4-el) 173.0 ml LVAs ap4 31.5 cm\S\2 LVLs ap4 7.5 cm ESV(MOD-sp4) 107.9 ml ESV(sp4-el) 112.6 ml EF(MOD-sp4) 34.6 % EF(sp4-el) 34.9 % LVAd ap2 41.5 cm\S\2 LVLd ap2 9.0 cm EDV(MOD-sp2) 155.2 ml EDV(sp2-el) 162.3 ml LVAs ap2 31.2 cm\S\2 LVLs ap2 8.1 cm ESV(MOD-sp2) 102.2 ml ESV(sp2-el) 102.2 ml EF(MOD-sp2) 34.1 % EF(sp2-el) 37.0 % LVLd %diff 1.3 % EDV(MOD-bp) 160.8 ml LVLs %diff 7.2 % ESV(MOD-bp) 105.1 ml EF(MOD-bp) 34.6 % SV(MOD-sp4) 57.1 ml SI(MOD-sp4) 27.0 ml/m\S\2 SV(MOD-sp2) 53.0 ml SI(MOD-sp2) 25.1 ml/m\S\2 SV(MOD-bp) 55.7 ml SI(MOD-bp) 26.4 ml/m\S\2 SV(sp4-el) 60.4 ml SI(sp4-el) 28.7 ml/m\S\2 SV(sp2-el) 60.1 ml SI(sp2-el) 28.5 ml/m\S\2 Doppler Measurements and Calculations MV E max deep 104.6 cm/sec MV A max deep 46.9 cm/sec MV E/A 2.2 MV P1/2t max deep 116.5 cm/sec MV P1/2t 108.7 msec MVA(P1/2t) 2.0 cm\S\2 MV dec slope 313.9 cm/sec\S\2 MV dec time 0.19 sec MR max deep 474.1 cm/sec MR max PG 89.9 mmHg PA V2 max 144.8 cm/sec PA max PG 8.4 mmHg
[2016-11-12] MEDS ORDERED: FUROSEMIDE INJ 40 MG in SYRINGE 0 ML IV SCH (10:00)
[2016-11-12] MEDS ORDERED: NURSING VERBAL MED ORDER ONE ×2 (12:15→13:00)
[2016-11-12] MEDS ORDERED: DOBUTAMINE 500MG / D5W IV PRN (12:15)
[2016-11-12] MEDS: ALBUMIN HUMAN 25% 12.5 GM/50 ML VIAL IV SCH ×2 (13:09→13:25)
--- NOTE | 2016-11-12 13:38 | Cardiology Follow-Up ---
Subjective Subjective Date of Service: Nov 12, 2016. Pt evaluation today including: conversation w/ patient, physical exam, chart review, lab review, review of studies, conversation w/ store sales consultant, review of inpatient medication list Pain: none Voiding: mcmahan catheter in place Additional Details: no cp. conversational dyspnea. no edema. nitro was discontinued. chest discomfort returned. nitro turned back on. no bleeding complications, no upcoming surgeries. Problem List Medical Problems: (1) Acute pulmonary edema Status: Acute Review of Systems Constitutional: No chills, No fatigue, No fever Eyes: No diplopia, No worsening of vision ENT: No hearing loss, No nasal symptoms, No problem reported, No trouble swallowing, No unusual epistaxis Respiratory: + dyspnea on exertion, + shortness of breath, No cough, No dyspnea at rest, No hemoptysis, No sputum, No wheezing Cardiac: No chest pain, No edema, No orthopnea, No palpitations, No problem reported Breast: No breast pain, No problem reported Abdomen: No GI bleeding, No constipation, No diarrhea, No nausea, No pain, No problem reported, No vomiting Musculoskeletal: No calf pain, No joint pain Male : No hematuria, No problem reported Neurologic: No balance problems, No memory loss, No paralysis, No problem reported, No weakness Psychiatric: No anxiety, No depression symptoms Heme: No abnormal bleeding/bruising, No problem reported Endo: No fatigue, No problem reported Skin: No bleeding, No color change, No itch, No new/changing skin lesions, No problem reported, No rash Objective Vital Signs Last Vital Signs Documentation Date Time Temp Pulse Resp B/P Pulse Ox O2 Delivery O2 Flow Rate FiO2 11/12/16 12:00 97 Humidified Oxygen 5.0 100 11/12/16 08:00 36.4 80 20 102/67 Physical Exam: General Appearance: WD/WN, no apparent distress Eyes: bilateral eyes normal inspection ENT: normal ENT inspection, hearing grossly normal Neck: supple, no adenopathy, thyroid normal, no JVD, no carotid bruits, trachea midline Respiratory/Chest: chest non-tender, lungs clear, normal breath sounds, no respiratory distress, no accessory muscle use Cardiovascular: regular rate, rhythm, no edema, no gallop, no JVD, no murmur Abdomen: normal bowel sounds, non tender, soft Extremities: normal range of motion, non-tender, normal inspection, no pedal edema, no calf tenderness Neurologic/Psychiatric: alert, normal mood/affect, oriented x 3 Skin: normal color, warm/dry, no rash Lymphatic: no adenopathy Assessment and Plan 1. NSTEMI - trop up to 22. Echo with global hypokinesis, EF 30%. Lateral ST changes on ECG (reviewed). Dyspnea - continued. 40 IV lasix given. Nitro restarted. Patient initially desired medical therapy, but with continued symptoms and dynamic ECG changes, decision to perform heart cath. CABG x 4 history - unknown prior LVEF. 2. Acute systolic CHF - decompensation - improved with lasix. Hypotension - IV pressors started in ICU. Echo: LVEF 30-35% with global hypokinesis. Central line being performed in ICU. hep gtt, nitro gtt, enalapril, plavix, asa, statin, BB. Comorbidities of HTN and DM, CKD with creat 1.4. Medications: Current Inpatient Medications Medications (Trade) Dose Ordered Sig/Maximiliano Route Start Time Stop Time Status Last Admin Dose Admin Aspirin (Ecotrin Tab) 81 mg DAILY PO 11/12/16 09:00 12/12/16 08:59 11/12/16 09:20 81 MG Atorvastatin Calcium (Lipitor Tab) 80 mg DAILY PO 11/12/16 09:00 12/12/16 08:59 11/12/16 09:20 80 MG Carvedilol (Coreg Tab) 6.25 mg BID PO 11/11/16 21:00 12/11/16 20:59 11/12/16 09:20 6.25 MG Clopidogrel Bisulfate (plAVix TAB) 75 mg DAILY PO 11/12/16 09:00 12/12/16 08:59 11/12/16 09:20 75 MG Enalapril Maleate (Vasotec Tab) 10 mg DAILY PO 11/12/16 09:00 12/12/16 08:59 11/12/16 09:20 10 MG Acetaminophen (Tylenol Tab) 650 mg Q4H PRN PO 11/11/16 19:00 12/11/16 18:59 Lorazepam (Ativan Tab) 0.5 mg Q4H PRN PO 11/11/16 19:00 12/11/16 18:59 Lorazepam (Ativan Tab) 1 mg Q6H PRN PO 11/11/16 19:00 12/11/16 18:59 Lorazepam 1 mg 1 mg Q6H PRN IV 11/11/16 19:00 12/11/16 18:59 Pantoprazole Sodium/Syringe (Protonix Inj/ Syringe) 10 ml @ 5 mls/min DAILY IV 11/12/16 09:00 12/12/16 08:59 11/12/16 09:20 5 MLS/MIN Morphine Sulfate (MoRPHine SULFATE INJ) 2 mg Q2H PRN IV 11/11/16 19:00 11/25/16 18:59 Morphine Sulfate 4 mg 4 mg Q2H PRN IV 11/11/16 19:00 11/25/16 18:59 Nitroglycerin/ Dextrose (Nitroglycerin/ D5w 100 Mcg/Ml) 250 ml @ 0 mls/hr Q0M PRN IV 11/11/16 19:00 12/11/16 18:59 Metoprolol Tartrate (Lopressor Iv) 5 mg Q4H PRN IV 11/11/16 19:00 12/11/16 18:59 Insulin Aspart (novoLOG ASPART) SLIDING SCALE PARAMETER ACHS SC 11/11/16 21:00 12/11/16 20:59 11/11/16 23:08 3 UNITS Glucose (Glucose 40% Gel) 15-30 GRAMS 15 GRAMS... UD PRN PO 11/11/16 19:45 12/11/16 19:44 Glucose (Glucose Chew Tab) 4-8 Tablets 4 Tabl... UD PRN PO 11/11/16 19:45 12/11/16 19:44 Dextrose (Dextrose 50% 50ML Syringe) 25-50ML OF 50% DW IV FOR... UD PRN IV 11/11/16 19:45 12/11/16 19:44 Glucagon 1 mg 1 mg UD PRN SQ 11/11/16 19:45 12/11/16 19:44 Heparin Sodium/ Dextrose 500 ml @ 29 mls/hr [id number] PRN IV 11/11/16 20:15 12/11/16 20:14 11/12/16 13:17 29 MLS/HR Lorazepam/Syringe (Ativan Inj/ Syringe) 1 ml @ 1 mls/min Q6H PRN IV 11/11/16 21:00 12/11/16 20:59 Isosorbide Mononitrate 60 mg 60 mg QAM PO 11/13/16 09:00 12/13/16 08:59 Dobutamine HCl (DOBUTamine / D5W) 250 ml @ 0 mls/hr Q0M PRN IV 11/12/16 12:15 12/12/16 12:14 11/12/16 12:25 2 MLS/HR Lab Results: 11/12/16 02:39 Red Blood Count 4.14, Mean Corpuscular Volume 94.4, Mean Corpuscular Hemoglobin 32.4, Mean Corpuscular Hemoglobin Concent 34.3, Mean Platelet Volume 10.4, Neutrophils (%) (Auto) 72.7, Lymphocytes (%) (Auto) 12.7, Monocytes (%) (Auto) 13.1, Eosinophils (%) (Auto) 1.0, Basophils (%) (Auto) 0.3, Neutrophils # (Auto ) 7.07, Lymphocytes # (Auto) 1.24, Monocytes # (Auto) 1.27, Eosinophils # (Auto ) 0.10, Basophils # (Auto) 0.03 11/12/16 02:39 Test 11/11/16 17:44 11/11/16 17:49 11/11/16 17:50 11/11/16 20:11 Magnesium Level 2.5 mg/dl (1.8-2.4) Total Creatine Kinase 96 U/L (39-308) Creatine Kinase MB 3.2 ng/ml (0.5-3.6) Creatine Kinase MB Ratio 3.3 (0-3.0) Lipase 104 U/L (73-393) Beta-Hydroxybutyric Acid 1.39 mg/dL (0.2-2.81) Bedside Hemoglobin 16.3 g/dl (14.0-18.0) Bedside Hematocrit 48 % (42-52) Bedside Sodium 139 mEq/L (135-144) Bedside Potassium 4.1 mEq/L (3.3-5.0) Bedside Chloride 105 mEq/L (101-112) Bedside Total CO2 21 mEq/l (24-31) Bedside Blood Urea Nitrogen 25 mg/dl (7-18) Bedside Creatinine 1.4 mg/dl (0.6-1.3) Bedside Glucose (other) 380 mg/dl (70-99) Bedside Ionized Calcium (Christine) 1.15 mmol/l (1.12-1.32) Bedside Troponin I 0.070 ng/ml (0-0.045) Urine Color YELLOW Urine Appearance CLEAR (CLEAR) Urine pH 5.0 (4.5-7.5) Urine Specific [place] 1.005 (1.000-1.030) Urine Protein TRACE (NEG) Urine Glucose (UA) 2+ (NEG) Urine Ketones NEG (NEG) Urine Occult Blood 2+ (NEG) Urine Nitrite NEG (NEG) Urine Bilirubin NEG (NEG) Urine Urobilinogen NEG (NEG) Urine Leukocyte Esterase NEG (NEG) Urine WBC (Auto) 0 /hpf (0-5) Urine RBC (Auto) 10-30 /hpf (0-4) Urine Hyaline Casts (Auto) 0 /lpf (0-5) Urine Epithelial Cells (Auto) 5-10 /lpf (0-5) Urine Bacteria (Auto) NEG (NEG) Test 11/11/16 22:30 11/12/16 00:25 11/12/16 02:39 11/12/16 06:02 Influenza Type A (RT-PCR) Neg for Influ A (NEG) Influenza Type B (RT-PCR) Neg for Influ B (NEG) Activated Partial Thromboplast Time 59.7 SECONDS (21.0-31.0) Partial Thromboplastin Ratio 2.3 White Blood Count 9.73 K/uL (4.8-10.8) Red Blood Count 4.14 M/uL (4.7-6.1) Hemoglobin 13.4 g/dL (14.0-18.0) Hematocrit 39.1 % (42-52) Mean Corpuscular Volume 94.4 fL (80-100) Mean Corpuscular Hemoglobin 32.4 pg (25-34) Mean Corpuscular Hemoglobin Concent 34.3 g/dl (32-36) Platelet Count 156 K/uL (130-400) Mean Platelet Volume 10.4 fL (7.4-10.4) Neutrophils (%) (Auto) 72.7 % Lymphocytes (%) (Auto) 12.7 % Monocytes (%) (Auto) 13.1 % Eosinophils (%) (Auto) 1.0 % Basophils (%) (Auto) 0.3 % Neutrophils # (Auto) 7.07 K/uL (1.4-6.5) Lymphocytes # (Auto) 1.24 K/uL (1.2-3.4) Monocytes # (Auto) 1.27 K/uL (0.11-0.59) Eosinophils # (Auto) 0.10 K/uL (0-0.5) Basophils # (Auto) 0.03 K/uL (0-0.2) RDW Standard Deviation 48.5 fL (36.4-46.3) RDW Coefficient of Variation 14.1 % (11.5-14.5) Immature Granulocyte % (Auto) 0.2 % Immature Granulocyte # (Auto) 0.02 K/uL (0.00-0.02) Anion Gap 8.0 mmol/L (3-11) Est Creatinine Clear Calc Drug Dose 49.4 ml/min Estimated GFR () 56.2 Estimated GFR (Non- 48.5 BUN/Creatinine Ratio 21.2 (10-20) Calcium Level 8.4 mg/dl (8.5-10.1) Total Bilirubin 0.7 mg/dl (0.2-1) Direct Bilirubin 0.2 mg/dl (0-0.2) Aspartate Amino Transf (AST/SGOT) 99 U/L (15-37) Alanine Aminotransferase (ALT/SGPT) 54 U/L (12-78) Alkaline Phosphatase 83 U/L (45-117) Total Protein 6.3 gm/dl (6.4-8.2) Albumin 3.3 gm/dl (3.4-5.0) Bedside Glucose 160 mg/dl (70-99) Test 11/12/16 10:53 Troponin I 14.600 ng/ml (0-0.045)
--- NOTE | 2016-11-12 13:42 | Procedure Note ---
Procedure Note Procedure Date Nov 12, 2016. (Norm Guzman PA-C) Procedure Description Procedure Name: Arterial line placement left wrist Procedure time out: side/site verified, correct procedure Consent obtained: written (by Dr. Dowd) Time of procedure: 12:50 Performed by: physician manager clinical pharmacy (Norm Guzman PA-C) Indications: other (Blood pressure monitoring for hypotension) Contraindications: none Description: A time out was performed. Ultra sound was used to identify adequate left radial arterial procedural site. Using sterile technique, a 20 ga arterial artery access needle with overlying catheter was advanced through the skin until a flash was obtained. The wire was easily advanced to the hub and the overlying catheter was easily advanced as well. A good arterial pulsation was observed when the needle and wire were removed. The line was secured with a Stat-sujit device after skin prep was applied and then further secured with a sterile Stat- sujit dressing. A good arterial wave was identified on the monitor and correlated well with peripheral blood pressure. There were no complications with the access and no evidence of hematoma was observed. A radial pulse was appreciated distal to the insertion site after the completion of the procedure. Complications: none Patient tolerated procedure: well Post-procedure vital signs: reviewed and stable (Norm Guzman PA-C) Comments: I was personally present during the entire procedure (Justice Dowd, D.O.)
--- NOTE | 2016-11-12 13:58 | DIAGNOSTIC IMAGING REPORT ---
CHEST ONE VIEW PORTABLE CLINICAL HISTORY: S/P CENTRAL LINE PULMONARY EDEMA COMPARISON STUDY: 11/11/2016 FINDINGS: There are postsurgical changes of a midline sternotomy. The heart is at the upper limits of normal in size. There is been marked interval improvement in the previous identified pulmonary edema. There is been interval insertion of a left internal jugular central venous catheter. The tip projects over the superior vena cava. There is no pneumothorax.[ IMPRESSION: 1. Interval placement of a left internal jugular central venous catheter. No evidence of pneumothorax 2. Resolving pulmonary edema Electronically signed by: Luke Smith M.D. 11/12/2016 1:56 PM Dictated Date/Time: 11/12/2016 1:55 PM
--- NOTE | 2016-11-12 14:12 | Procedure Note ---
Pre-Mod Sedation Assessment General Date of Moderate Sedation: Nov 12, 2016. Vital Signs: Vital Signs Past 12 Hours Date Time Temp Pulse Resp B/P Pulse Ox O2 Delivery O2 Flow Rate FiO2 11/12/16 12:00 97 Humidified Oxygen 5.0 100 11/12/16 08:00 36.4 80 20 102/67 97 Humidified Oxygen 2.0 100 11/12/16 08:00 97 Humidified Oxygen 2.0 100 11/12/16 06:00 79 15 103/60 97 2.0 11/12/16 04:00 36.4 79 13 104/60 95 2.0 11/12/16 04:00 95 Humidified Oxygen 2.0 11/12/16 03:25 82 15 124/59 95 2.0 11/12/16 03:00 83 14 114/66 94 2.0 Review Cardiovascular: regular rate, rhythm, no edema, no gallop, no JVD, no murmur, normal peripheral pulses Abdomen: normal bowel sounds, non tender, soft, no organomegaly, no pulsatile mass Lungs: chest non-tender, lungs clear, normal breath sounds, no respiratory distress, no accessory muscle use Pre-Sedation Airway Assessment Oral Cavity: Dentures Able to Visualize Vocal Cords: No Short Thick Neck: No Hx of Sleep Apnea: No Smoking Status: Former Smoker (20 pack year hx quit in 's) Procedure Planning Contraindications-for Mod Sed: None Yes Notes The planned sedation has been discussed with the patient and consent obtained. I have identified the patient, determined the appropriateness of sedation and have assessed the patient immediately prior to the procedure. All medicine(s) and interventions are by my order.
[2016-11-12] MEDS ORDERED: MIDAZOLAM HCL 1 MG/ML 2ML VIAL ONE (14:25)
[2016-11-12] MEDS ORDERED: FENTANYL CITRATE INJ 50 MCG/1 ML 2 ML VIAL ONE (14:25)
--- NOTE | 2016-11-12 14:34 | Procedure Note ---
Procedure Note Procedure Date Nov 12, 2016. 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 Indication, risks, and benefits were explained at length. Procedure: Procedure was performed under strict sterile field in O.R. fashion. The left neck and chest were cleaned with chloroprep scrub and the pt was draped in sterile fashion. The internal jugular vein was identified using ultrasound. After anesthetizing the area with 5cc of lidocaine, venous blood was withdrawn after accessing the vein under ultrasound guidance. The syringe was removed and a guide wire was advanced into the introducer needle.The dilator was advanced after being exchanged for the introducer needle. After appropriate dilation was obtained, the dilator was removed and the central catheter was placed over the guide wire using Seldinger technique. The wire was removed and the catheter was sutured at 17cm. A surgical dressing was placed over the catheter with a biofilm shield in place. At the time of the procedure each port was aspirated and then flushed properly. Pt tolerated the procedure well with no complications. Post procedure x-ray was completed, placement was appropriate and no pneumothorax was noted. Complications: none Patient tolerated procedure: well Post-procedure vital signs: reviewed and stable
--- NOTE | 2016-11-12 14:52 | Progress Note ---
Subjective Date of Service: Nov 12, 2016. Subjective Pt evaluation today including: conversation w/ patient, chart review, lab review Pt had some SOB this AM, but not since. No further CP. Pt denies fever, abd pain, n/v/c/d, LE pain or swelling. ROS as noted above, otherwise neg. Problem List Medical Problems: (1) Acute pulmonary edema Status: Acute Objective Vital Signs Date Time Temp Pulse Resp B/P Pulse Ox O2 Delivery O2 Flow Rate FiO2 11/12/16 12:00 97 Humidified Oxygen 5.0 100 11/12/16 08:00 36.4 80 20 102/67 97 Humidified Oxygen 2.0 100 11/12/16 08:00 97 Humidified Oxygen 2.0 100 11/12/16 06:00 79 15 103/60 97 2.0 11/12/16 04:00 36.4 79 13 104/60 95 2.0 11/12/16 04:00 95 Humidified Oxygen 2.0 11/12/16 03:25 82 15 124/59 95 2.0 11/12/16 03:00 83 14 114/66 94 2.0 11/12/16 02:00 36.4 86 20 106/62 96 2.0 11/12/16 00:00 97 Humidified Oxygen 2.0 11/12/16 00:00 36.5 83 14 95/47 96 2.0 11/11/16 22:00 36.5 94 14 122/67 94 2.0 11/11/16 21:15 97 14 114/66 94 2.0 11/11/16 21:00 99 14 123/73 94 2.0 11/11/16 20:45 105 16 139/70 94 2.0 11/11/16 20:35 36.4 101 17 138/86 97 Nasal Cannula 3.0 11/11/16 20:30 105 14 138/86 98 3.0 11/11/16 20:20 105 20 97/67 97 11/11/16 20:00 105 21 105/75 98 BiPAP 100 11/11/16 19:35 107 20 149/79 100 BiPAP 11/11/16 19:30 107 22 133/93 100 Room Air 11/11/16 19:20 110 22 144/78 100 11/11/16 18:55 114 23 166/102 100 11/11/16 18:25 113 22 157/109 100 Room Air 11/11/16 18:11 120 99 11/11/16 18:01 106 11/11/16 18:00 113 28 156/83 98 BiPAP Physical Exam General Appearance: WD/WN, no apparent distress Respiratory/Chest: normal breath sounds, no respiratory distress Cardiovascular: regular rate, rhythm, no edema Abdomen: non tender, soft Extremities: non-tender, no pedal edema Neurologic/Psychiatric: alert, normal mood/affect Skin: warm/dry, + pertinent finding (b/lred and flaking patches on anterior ankle c/w psoriasis) Laboratory Results Last 24 Hours Test 11/11/16 17:44 11/11/16 17:49 11/11/16 17:50 11/11/16 17:52 White Blood Count 16.11 K/uL Red Blood Count 4.73 M/uL Hemoglobin 15.7 g/dL Hematocrit 45.2 % Mean Corpuscular Volume 95.6 fL Mean Corpuscular Hemoglobin 33.2 pg Mean Corpuscular Hemoglobin Concent 34.7 g/dl Platelet Count 265 K/uL Mean Platelet Volume 10.8 fL Neutrophils (%) (Auto) 63.0 % Lymphocytes (%) (Auto) 24.1 % Monocytes (%) (Auto) 10.4 % Eosinophils (%) (Auto) 1.6 % Basophils (%) (Auto) 0.5 % Neutrophils # (Auto) 10.15 K/uL Lymphocytes # (Auto) 3.89 K/uL Monocytes # (Auto) 1.67 K/uL Eosinophils # (Auto) 0.26 K/uL Basophils # (Auto) 0.08 K/uL RDW Standard Deviation 49.8 fL RDW Coefficient of Variation 14.1 % Immature Granulocyte % (Auto) 0.4 % Immature Granulocyte # (Auto) 0.06 K/uL Sodium Level 139 mmol/L Potassium Level 4.0 mmol/L Chloride Level 105 mmol/L Carbon Dioxide Level 22 mmol/L Anion Gap 12.0 mmol/L 18.0 mmol/L Blood Urea Nitrogen 24 mg/dl Creatinine 1.70 mg/dl Estimated GFR () 44.4 Estimated GFR (Non- 38.3 BUN/Creatinine Ratio 14.3 Random Glucose 370 mg/dl Calcium Level 8.6 mg/dl Magnesium Level 2.5 mg/dl Total Bilirubin 0.6 mg/dl Direct Bilirubin 0.2 mg/dl Aspartate Amino Transf (AST/SGOT) 67 U/L Alanine Aminotransferase (ALT/SGPT) 66 U/L Alkaline Phosphatase 100 U/L Total Creatine Kinase 96 U/L Creatine Kinase MB 3.2 ng/ml Creatine Kinase MB Ratio 3.3 Total Protein 7.9 gm/dl Albumin 3.9 gm/dl Lipase 104 U/L Beta-Hydroxybutyric Acid 1.39 mg/dL Bedside Hemoglobin 16.3 g/dl Bedside Hematocrit 48 % Bedside Sodium 139 mEq/L Bedside Potassium 4.1 mEq/L Bedside Chloride 105 mEq/L Bedside Total CO2 21 mEq/l Bedside Blood Urea Nitrogen 25 mg/dl Bedside Creatinine 1.4 mg/dl Bedside Glucose (other) 380 mg/dl Bedside Ionized Calcium (Christine) 1.15 mmol/l Bedside Troponin I 0.070 ng/ml Bedside Glucose 332 mg/dl Test 11/11/16 19:25 11/11/16 20:11 11/11/16 20:18 11/11/16 22:30 Activated Partial Thromboplast Time 98.4 SECONDS Partial Thromboplastin Ratio 3.8 Urine Color YELLOW Urine Appearance CLEAR Urine pH 5.0 Urine Specific [place] 1.005 Urine Protein TRACE Urine Glucose (UA) 2+ Urine Ketones NEG Urine Occult Blood 2+ Urine Nitrite NEG Urine Bilirubin NEG Urine Urobilinogen NEG Urine Leukocyte Esterase NEG Urine WBC (Auto) 0 /hpf Urine RBC (Auto) 10-30 /hpf Urine Hyaline Casts (Auto) 0 /lpf Urine Epithelial Cells (Auto) 5-10 /lpf Urine Bacteria (Auto) NEG Bedside Glucose 352 mg/dl Influenza Type A (RT-PCR) Neg for Influ A Influenza Type B (RT-PCR) Neg for Influ B Test 11/11/16 23:04 11/12/16 00:25 11/12/16 02:39 11/12/16 06:02 Bedside Glucose 236 mg/dl 160 mg/dl Activated Partial Thromboplast Time 59.7 SECONDS Partial Thromboplastin Ratio 2.3 White Blood Count 9.73 K/uL Red Blood Count 4.14 M/uL Hemoglobin 13.4 g/dL Hematocrit 39.1 % Mean Corpuscular Volume 94.4 fL Mean Corpuscular Hemoglobin 32.4 pg Mean Corpuscular Hemoglobin Concent 34.3 g/dl Platelet Count 156 K/uL Mean Platelet Volume 10.4 fL Neutrophils (%) (Auto) 72.7 % Lymphocytes (%) (Auto) 12.7 % Monocytes (%) (Auto) 13.1 % Eosinophils (%) (Auto) 1.0 % Basophils (%) (Auto) 0.3 % Neutrophils # (Auto) 7.07 K/uL Lymphocytes # (Auto) 1.24 K/uL Monocytes # (Auto) 1.27 K/uL Eosinophils # (Auto) 0.10 K/uL Basophils # (Auto) 0.03 K/uL RDW Standard Deviation 48.5 fL RDW Coefficient of Variation 14.1 % Immature Granulocyte % (Auto) 0.2 % Immature Granulocyte # (Auto) 0.02 K/uL Sodium Level 142 mmol/L Potassium Level 4.8 mmol/L Chloride Level 104 mmol/L Carbon Dioxide Level 30 mmol/L Anion Gap 8.0 mmol/L Blood Urea Nitrogen 30 mg/dl Creatinine 1.40 mg/dl Est Creatinine Clear Calc Drug Dose 49.4 ml/min Estimated GFR () 56.2 Estimated GFR (Non- 48.5 BUN/Creatinine Ratio 21.2 Random Glucose 181 mg/dl Calcium Level 8.4 mg/dl Total Bilirubin 0.7 mg/dl Direct Bilirubin 0.2 mg/dl Aspartate Amino Transf (AST/SGOT) 99 U/L Alanine Aminotransferase (ALT/SGPT) 54 U/L Alkaline Phosphatase 83 U/L Troponin I 22.600 ng/ml Total Protein 6.3 gm/dl Albumin 3.3 gm/dl Test 11/12/16 10:53 Troponin I 14.600 ng/ml Assessment and Plan 76 y/o M who was admitted on 11/11 with chest pain and SOB CP/SOB: Improved with lasix and thought possibly related to CHF given neg trop Trop has since increased substantially, pt for cath this afternoon ICU/cards management as noted Pt with hx of CAD s/p CABG DM: Stable, SSI PRN Holding metformin HTN: dobutamine drip Central line placed 11/12 Other: Full code
[2016-11-12] MEDS ORDERED: SODIUM CHLORIDE 0.9% 1000ML 1,000 ML IV SCH (14:58)
--- NOTE | 2016-11-12 14:58 | Procedure Note ---
Post-Mod Sedation Assessment General Date of Moderate Sedation Nov 12, 2016. Vital Signs: Vital Signs Past 12 Hours Date Time Temp Pulse Resp B/P Pulse Ox O2 Delivery O2 Flow Rate FiO2 11/12/16 12:00 97 Humidified Oxygen 5.0 100 11/12/16 08:00 36.4 80 20 102/67 97 Humidified Oxygen 2.0 100 11/12/16 08:00 97 Humidified Oxygen 2.0 100 11/12/16 06:00 79 15 103/60 97 2.0 11/12/16 04:00 36.4 79 13 104/60 95 2.0 11/12/16 04:00 95 Humidified Oxygen 2.0 11/12/16 03:25 82 15 124/59 95 2.0 11/12/16 03:00 83 14 114/66 94 2.0 Review - Discharge Criteria Vital Signs Stable: Yes Alert/Oriented/Conversant: Yes Returned to Baseline Mental St: Yes Nausea Absent/Minimal: Yes Pain/Discomfort/Absent/Minimal: Yes Normal/Baseline Respirations: Yes Active Bleeding?: No Pt Received D/C Instructions: Yes Prescriptions Given: None Specific Proced. D/C Criteria Distal Pulses Present (Cardiac: Yes Groin site assessed-Card Cath: Yes Voided Prior To Discharge: N/A Discharged Patients Adult Escort/Transportation: N/A
[2016-11-12] MEDS ORDERED: ACETAMINOPHEN 325 MG TAB PO PRN (15:00)
[2016-11-12] MEDS ORDERED: ONDANSETRON INJ 2 MG/ML 2 ML VIAL IV PRN (15:00)
--- NOTE | 2016-11-12 15:16 | Cardiac Catheterization ---
Procedure Note Procedure Date Nov 12, 2016. Pre-Procedure Diagnosis Non STEMI, CAD, Cardiomyopathy AUC Score 9 Post-Procedure Diagnosis Severe CAD Procedure(s) Performed Coronary Angiography, Left Heart Cath, Ultrasound Guided Vascular Access, Bypass Graft Angiography, Femoral Artery Angiography Tie Cutter Dr. Zaman Paraoptometric(s) radha Estimated Blood Loss 20 Medication(s) Fentanyl, Lidocaine 1% Summary of Findings Hypotension with NSTEMI and acute systolic CHF. Worsening BP and ECG changes. Decision to proceed with catheterization. Patient's symptoms improved. No PCI was performed. One bypass occluded, ? duration. 3 bypasses patent. [place] coronaries with severe disease. Attempt to conserve dye with CKD. 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 Angiogram confirms patent [employer]ENOGRAPHIC [employer] REPORTER/SFA. LM: 80% stenosis throughout proximal - mid - distal LM. LCx: ostial and proximal 70% stenosis. LCx patent, limited imaging. LAD with diffuse severe stenosis. RCA: mid vessel occlusion. ostial stenosis with dampening of the catheter upon engagement. 4 bypasses: SVG - ? target (OM or Diagonal) stump occlusion. SVG - RCA: patent. Best engaged with a MP catheter. Poor outflow with small [place] RCA and diseased RCA at distal anastomosis. SVG - OM: patent. small OM as outflow. SNOW - LAD: patent. No significant disease in LAD after anastomosis. Mynx right groin. Recommendation: optimal medical therapy. Poor outflow in the RCA and OM, little benefit to stent through the bypass grafts for a small distribution. Stump occlusion to the 4th bypass, recommend OMT. SNOW patent. recommend cardiac rehab, continue pressor medications. Restart heparin drip in 6 hours and continue for 48 hours. asa, plavix, statin, bb, natan if tolerated. restart nitro drip if needed. Hemodynamics Rest Ao: 78/43 Final Ao: 78/43 LV: 87/3/7 Recommendations Medical therapy and/or Counseling Specimens None Radiation Exposure (mGy) 1463 Contrast (mls) 110 Fluids (cc crystalloids) 75 Drains none Anesthesia fent lido Procedural Complication(s) None Disposition ICU ACC Data Cardiac Status Clinical evaluation leading to the procedure CAD Presntation: Unstable angina, Non STEMI Anginal Classification: CCS II Heart Failure: Yes, NYHA Class: CCS III Cardiogenic Shock w/in 24Hrs: Yes Cardiac Arrest w/in 24Hrs: No Imaging studies past 6 months: No Stress studies past 6 months: No Standard Exercise Stress Test: No Stress Echocardiogram: No Stress Testing w/SPECT MPI: No Cardiac CTA: No Coronary Anatomy Dominant: Right Left Main (% Stenosis): Ostial (80), Proximal (80), Mid (80), Distal (80) LAD (% Stenosis): Proximal (90), Mid (70) Circumflex (% Stenosis): Proximal (70), Mid (80) RCA (% Stenosis): Mid (100) Grafts - LAD (%): Normal Grafts - Circumflex (%): Normal (poor outflow. ) Grafts - RCA (%): Normal (poor outflow and 80% stenosis in [place] RCA after distal anastomosis. ) Grafts - Ramus (%): Ostial (100) Left Ventricular Angiography EF (%): not done to conserve dye with CKD. Diagnostic Physician's Name: Mathieu Zaman DO Status: Urgent Closure Device Percutaneous Entry Location: Femoral Closure Device: Mynx Recommendations: Medical therapy and/or Counseling Intraprocedure Events Significant Dissection: No Perforation: No
[2016-11-12] MEDS: HEPARIN 25,000 UNIT/500ML D5W 500 ML IV PRN (21:24)
[2016-11-12] MEDS ORDERED: HEPARIN IV BOLUS 4,000 UNIT in SYRINGE 0 ML IV ONE (21:30)
[2016-11-13] VITALS (12 sets, daily range): BP systolic 86–160; BP diastolic 39–76; PULSE 69–94; TEMP 36.4–37.7; O2SAT 90–97
[2016-11-13 03:37] LABS: BASO % 0.2 %; BASO ABS # 0.02 K/uL (0-0.2); COMPLETE YES; EOS % 1.6 %; HEMATOCRIT 33.3 % (42-52); IG% 0.5 %; LYMPH % 18.3 %; LYMPH ABS # 1.48 K/uL (1.2-3.4); MEAN CELL VOLUME 93.5 fL (80-100); MEAN CORPUSCULAR HGB CONC 34.2 g/dl (32-36); MEAN PLATELET VOLUME 9.7 fL (7.4-10.4); MONO % 11.9 %; NEUT % 67.5 %; PLATELET COUNT 145 K/uL (130-400); RED BLOOD COUNT 3.56 M/uL (4.7-6.1); WHITE BLOOD COUNT 8.07 K/uL (4.8-10.8)
--- NOTE | 2016-11-13 03:37 | Critical Care Progress Note ---
Critical Care Progress Note Date of Service Nov 12, 2016. ICU Day ICU Day Number: [address] Dowd Subjective Patient was doing well, and denied chest pain during my initial evaluation. On subsequent evaluations patient was complaining of mild midsternal chest pain as well as right posterior neck pain. He was also intermittently dizzy, this occurred when his blood pressure would drop significantly. Objective General: Alert well-nourished well-hydrated adult male Cardiovascular: S1-S2 regular rate and rhythm no murmurs rubs gallops Pulmonary: Lungs clear to auscultation bilaterally no wheezes rales rhonchi Abdomen soft nondistended nontender no hepatosplenomegaly Extremities: 2+ pulses, no clubbing cyanosis or edema Neuro: No focal deficits, 5 out of 5 strength. Mental health: Pleasant mood Assessment & Plan (1) Hypotension (arterial) Likely multifactorial: Large concerning factor was aggressive diuresis and nitrates. Patient was given albumin for volume expansion, the nitroglycerin was stopped, and started on dobutamine. We'll attempt to wean dobutamine and restart beta blockers soon as blood pressure stabilizes (2) Unstable angina Echo reviewed with cardiology. Patient's blood pressure had dropped and we have intermittently turned off the nitroglycerin. Shortly after discontinuing the nitroglycerin the patient would have return of his chest pain. Because of this the decision was made to can continue with an invasive workup and the patient was sent for cardiac catheterization. There was no discrete lesion amenable to stenting, the patient is not a candidate for repeat cardio thoracic surgery revascularization per cardiology. (3) Hyperglycemia due to type 2 diabetes mellitus We achieved ideal control rather quickly with subcutaneous insulin, we will continue at this point (4) Diabetes mellitus Poorly controlled, Sliding scale used, will convert to insulin gtt if unable to control quickly (5) Acute respiratory failure with hypoxia This appears to be resolved. (6) Acute pulmonary edema Significant diuresis with Lasix (7) Acute electrocardiogram changes EKG is reviewed by cardiology (8) Smoking history 20 pack year history Quit in 's I have personally spent 110 minutes of critical care time in the direct management of this patient. This is a life/limb threatening event. This includes time spent evaluating patient, direct bedside care, chart review, placing orders, interpretation of diagnostic studies, discussion with consultants, patient, and family members, as well as other required patient management activities. This time is exclusive of all separately billable procedures, and teaching time and separate from and in addition to any other critical care service time. This time also required multiple re-evaluations, and discussions with cardiology regarding the timing of cardiac cath as well as the results. Data Medications: Current Inpatient Medications Medications (Trade) Dose Ordered Sig/Maximiliano Route Start Time Stop Time Status Last Admin Dose Admin Aspirin (Ecotrin Tab) 81 mg DAILY PO 11/12/16 09:00 12/12/16 08:59 11/12/16 09:20 81 MG Atorvastatin Calcium (Lipitor Tab) 80 mg DAILY PO 11/12/16 09:00 12/12/16 08:59 11/12/16 09:20 80 MG Carvedilol (Coreg Tab) 6.25 mg BID PO 11/11/16 21:00 12/11/16 20:59 11/12/16 21:22 6.25 MG Clopidogrel Bisulfate (plAVix TAB) 75 mg DAILY PO 11/12/16 09:00 12/12/16 08:59 11/12/16 09:20 75 MG Enalapril Maleate (Vasotec Tab) 10 mg DAILY PO 11/12/16 09:00 12/12/16 08:59 11/12/16 09:20 10 MG Lorazepam (Ativan Tab) 0.5 mg Q4H PRN PO 11/11/16 19:00 12/11/16 18:59 Lorazepam (Ativan Tab) 1 mg Q6H PRN PO 11/11/16 19:00 12/11/16 18:59 Lorazepam 1 mg 1 mg Q6H PRN IV 11/11/16 19:00 12/11/16 18:59 Pantoprazole Sodium/Syringe (Protonix Inj/ Syringe) 10 ml @ 5 mls/min DAILY IV 11/12/16 09:00 12/12/16 08:59 11/12/16 09:20 5 MLS/MIN Morphine Sulfate (MoRPHine SULFATE INJ) 2 mg Q2H PRN IV 11/11/16 19:00 11/25/16 18:59 Morphine Sulfate 4 mg 4 mg Q2H PRN IV 11/11/16 19:00 11/25/16 18:59 Nitroglycerin/ Dextrose (Nitroglycerin/ D5w 100 Mcg/Ml) 250 ml @ 0 mls/hr Q0M PRN IV 11/11/16 19:00 12/11/16 18:59 Metoprolol Tartrate (Lopressor Iv) 5 mg Q4H PRN IV 11/11/16 19:00 12/11/16 18:59 Insulin Aspart (novoLOG ASPART) SLIDING SCALE PARAMETER ACHS SC 11/11/16 21:00 12/11/16 20:59 11/11/16 23:08 3 UNITS Glucose (Glucose 40% Gel) 15-30 GRAMS 15 GRAMS... UD PRN PO 11/11/16 19:45 12/11/16 19:44 Glucose (Glucose Chew Tab) 4-8 Tablets 4 Tabl... UD PRN PO 11/11/16 19:45 12/11/16 19:44 Dextrose (Dextrose 50% 50ML Syringe) 25-50ML OF 50% DW IV FOR... UD PRN IV 11/11/16 19:45 12/11/16 19:44 Glucagon 1 mg 1 mg UD PRN SQ 11/11/16 19:45 12/11/16 19:44 Lorazepam/Syringe (Ativan Inj/ Syringe) 1 ml @ 1 mls/min Q6H PRN IV 11/11/16 21:00 12/11/16 20:59 Isosorbide Mononitrate 60 mg 60 mg QAM PO 11/13/16 09:00 12/13/16 08:59 Dobutamine HCl (DOBUTamine / D5W) 250 ml @ 0 mls/hr Q0M PRN IV 11/12/16 12:15 12/12/16 12:14 11/12/16 12:25 2 MLS/HR Acetaminophen (Tylenol Tab) 650 mg Q4H PRN PO 11/12/16 15:00 12/12/16 14:59 Ondansetron HCl 4 mg 4 mg Q6H PRN IV 11/12/16 15:00 12/12/16 14:59 Heparin Sodium/ Dextrose (Heparin 25,000 Unit/500ml D5W) 500 ml @ 19 mls/hr Q24H PRN IV 11/12/16 21:00 12/12/16 20:59 11/12/16 21:24 19 MLS/HR I & O: 24-Hour Column 11/13/16 08:00 Intake Total 1293 ml Output Total 2325 ml Balance -1032 ml Vital Signs: Date Time Temp Pulse Resp B/P Pulse Ox O2 Delivery O2 Flow Rate FiO2 11/13/16 02:00 94 16 95 Humidified Oxygen 3.0 130/69 11/13/16 00:00 36.7 94 14 134/53 94 Humidified Oxygen 3.0 139/68 11/13/16 00:00 96 Humidified Oxygen 3.0 11/12/16 23:00 97 14 129/65 97 Humidified Oxygen 4.0 11/12/16 22:00 91 16 126/53 96 Humidified Oxygen 4.0 120/55 11/12/16 21:00 96 14 96 Humidified Oxygen 4.0 105/53 11/12/16 20:00 96 Humidified Oxygen 4.0 11/12/16 20:00 36.5 98 20 96 Humidified Oxygen 4.0 96/46 11/12/16 19:00 110 17 136/64 96 Humidified Oxygen 4.0 134/68 11/12/16 18:00 36.7 105 13 114/66 96 Nasal Cannula 5.0 118/53 11/12/16 17:00 36.4 98 13 82/53 95 Nasal Cannula 5.0 11/12/16 16:30 36.4 100 17 90/57 95 Nasal Cannula 5.0 11/12/16 16:00 36.4 98 13 82/53 95 Nasal Cannula 5.0 11/12/16 16:00 97 Humidified Oxygen 5.0 100 11/12/16 15:30 36.4 97 20 110/58 95 Nasal Cannula 5.0 11/12/16 15:15 36.4 93 20 110/58 95 Nasal Cannula 5.0 11/12/16 15:00 Room Air 11/12/16 14:55 92 16 127/57 96 Room Air 11/12/16 12:00 97 Humidified Oxygen 5.0 100 11/12/16 12:00 36.4 74 15 77/40 95 Humidified Oxygen 5.0 100 11/12/16 10:00 36.4 81 15 99/55 95 Humidified Oxygen 2.0 100 11/12/16 08:00 36.4 80 20 102/67 97 Humidified Oxygen 2.0 100 11/12/16 08:00 97 Humidified Oxygen 2.0 100 11/12/16 06:00 79 15 103/60 97 2.0 11/12/16 04:00 36.4 79 13 104/60 95 2.0 11/12/16 04:00 95 Humidified Oxygen 2.0 Laboratory Results: Last 24 Hours Test 11/12/16 06:02 11/12/16 10:53 11/12/16 18:06 11/12/16 19:28 Bedside Glucose 160 mg/dl Troponin I 14.600 ng/ml Activated Partial Thromboplast Time 27.2 SECONDS Partial Thromboplastin Ratio 1.0 Random Cortisol 7.74 mcg/dl Test 11/12/16 21:21 Bedside Glucose 163 mg/dl
[2016-11-13 03:48] LABS: PARTIAL THROMBOPLASTIN RATIO 1.7
[2016-11-13 04:07] LABS: BUN/CREATININE RATIO 20.8 (10-20); CALCIUM 7.6 mg/dl (8.5-10.1); CREATININE 1.4 mg/dl (0.60-1.40); POTASSIUM 3.8 mmol/L (3.5-5.1)
[2016-11-13] MEDS ORDERED: HEPARIN IV BOLUS 3,000 UNIT in SYRINGE 0 ML IV ONE (04:15)
[2016-11-13] MEDS: HEPARIN 25,000 UNIT/500ML D5W 500 ML IV PRN ×2 (04:18→21:11)
[2016-11-13] MEDS: INSULIN ASPART 100 UNITS/ML 3 ML PEN SC SCH ×4 (07:34→21:09)
[2016-11-13] MEDS: CARVEDILOL 6.25 MG TAB PO SCH ×2 (07:48→21:11)
[2016-11-13] MEDS: ASPIRIN 81 MG ECTAB PO SCH (07:48)
[2016-11-13] MEDS: ATORVASTATIN 40 MG TAB PO SCH (07:49)
[2016-11-13] MEDS: ISOSORBIDE MONONITRATE 60 MG TABCR PO SCH (07:49)
[2016-11-13] MEDS: ENALAPRIL MALEATE 10 MG TAB PO SCH (07:49)
[2016-11-13] MEDS: CLOPIDOGREL BISULFATE 75 MG TAB PO SCH (07:49)
[2016-11-13] MEDS ORDERED: PANTOprazole SOD 40 MG TAB PO SCH (09:00)
--- NOTE | 2016-11-13 10:24 | Progress Note ---
Subjective Date of Service: Nov 13, 2016. Subjective Pt evaluation today including: conversation w/ patient, chart review, lab review, conversation w/ inside solar sales consultant Pt is stable. He had a bad coughing fit that caused a bit of chest pain, but not nearly as intense as the pain that brought him in and has had no further chest pain. No SOB, but has not been up and around much since admission. Pt denies fever, abd pain, n/v/c/d, LE pain or swelling. Ate without issue. ROS as noted above, otherwise neg. Problem List Medical Problems: (1) Acute pulmonary edema Status: Acute Objective Vital Signs Date Time Temp Pulse Resp B/P Pulse Ox O2 Delivery O2 Flow Rate FiO2 11/13/16 08:00 36.5 93 18 139/72 92 Room Air 11/13/16 08:00 92 11/13/16 06:00 84 12 132/58 95 Humidified Oxygen 3.0 129/68 11/13/16 04:00 95 Humidified Oxygen 2.0 11/13/16 04:00 36.6 89 16 130/55 95 Humidified Oxygen 3.0 134/76 11/13/16 02:00 94 16 95 Humidified Oxygen 3.0 130/69 11/13/16 00:00 36.7 94 14 134/53 94 Humidified Oxygen 3.0 139/68 11/13/16 00:00 96 Humidified Oxygen 3.0 11/12/16 23:00 97 14 129/65 97 Humidified Oxygen 4.0 11/12/16 22:00 91 16 126/53 96 Humidified Oxygen 4.0 120/55 11/12/16 21:00 96 14 96 Humidified Oxygen 4.0 105/53 11/12/16 20:00 96 Humidified Oxygen 4.0 11/12/16 20:00 36.5 98 20 96 Humidified Oxygen 4.0 96/46 11/12/16 19:00 110 17 136/64 96 Humidified Oxygen 4.0 134/68 11/12/16 18:00 36.7 105 13 114/66 96 Nasal Cannula 5.0 118/53 11/12/16 17:00 36.4 98 13 82/53 95 Nasal Cannula 5.0 11/12/16 16:30 36.4 100 17 90/57 95 Nasal Cannula 5.0 11/12/16 16:00 36.4 98 13 82/53 95 Nasal Cannula 5.0 11/12/16 16:00 97 Humidified Oxygen 5.0 100 11/12/16 15:30 36.4 97 20 110/58 95 Nasal Cannula 5.0 11/12/16 15:15 36.4 93 20 110/58 95 Nasal Cannula 5.0 11/12/16 15:00 Room Air 11/12/16 14:55 92 16 127/57 96 Room Air 11/12/16 12:00 97 Humidified Oxygen 5.0 100 11/12/16 12:00 36.4 74 15 77/40 95 Humidified Oxygen 5.0 100 Physical Exam Comments: General Appearance: WD/WN, no apparent distress Respiratory/Chest: normal breath sounds, no respiratory distress Cardiovascular: regular rate, rhythm, no edema Abdomen: non tender, soft Extremities: non-tender, no pedal edema Neurologic/Psychiatric: alert, normal mood/affect Skin: warm/dry, + pertinent finding (b/lred and flaking patches on anterior ankle c/w psoriasis) Laboratory Results Last 24 Hours Test 11/12/16 10:53 11/12/16 18:06 11/12/16 19:28 11/12/16 21:21 Troponin I 14.600 ng/ml Activated Partial Thromboplast Time 27.2 SECONDS Partial Thromboplastin Ratio 1.0 Random Cortisol 7.74 mcg/dl Bedside Glucose 163 mg/dl Test 11/13/16 03:30 11/13/16 06:43 11/13/16 10:15 White Blood Count 8.07 K/uL Red Blood Count 3.56 M/uL Hemoglobin 11.4 g/dL Hematocrit 33.3 % Mean Corpuscular Volume 93.5 fL Mean Corpuscular Hemoglobin 32.0 pg Mean Corpuscular Hemoglobin Concent 34.2 g/dl Platelet Count 145 K/uL Mean Platelet Volume 9.7 fL Neutrophils (%) (Auto) 67.5 % Lymphocytes (%) (Auto) 18.3 % Monocytes (%) (Auto) 11.9 % Eosinophils (%) (Auto) 1.6 % Basophils (%) (Auto) 0.2 % Neutrophils # (Auto) 5.44 K/uL Lymphocytes # (Auto) 1.48 K/uL Monocytes # (Auto) 0.96 K/uL Eosinophils # (Auto) 0.13 K/uL Basophils # (Auto) 0.02 K/uL RDW Standard Deviation 49.0 fL RDW Coefficient of Variation 14.3 % Immature Granulocyte % (Auto) 0.5 % Immature Granulocyte # (Auto) 0.04 K/uL Activated Partial Thromboplast Time 44.3 SECONDS Partial Thromboplastin Ratio 1.7 Sodium Level 141 mmol/L Potassium Level 3.8 mmol/L Chloride Level 107 mmol/L Carbon Dioxide Level 25 mmol/L Anion Gap 9.0 mmol/L Blood Urea Nitrogen 29 mg/dl Creatinine 1.40 mg/dl Est Creatinine Clear Calc Drug Dose 49.9 ml/min Estimated GFR () 56.2 Estimated GFR (Non- 48.5 BUN/Creatinine Ratio 20.8 Random Glucose 147 mg/dl Calcium Level 7.6 mg/dl Total Bilirubin 0.7 mg/dl Direct Bilirubin 0.2 mg/dl Aspartate Amino Transf (AST/SGOT) 38 U/L Alanine Aminotransferase (ALT/SGPT) 37 U/L Alkaline Phosphatase 66 U/L Troponin I 6.770 ng/ml Total Protein 5.9 gm/dl Albumin 3.2 gm/dl Bedside Glucose 151 mg/dl Assessment and Plan 76 y/o M who was admitted on 11/11 with chest pain and SOB CP/SOB: Improved with lasix and thought possibly related to CHF given neg trop Trop with initial increase, now trending down ICU/cards management as noted Pt with hx of CAD s/p CABG Cath report noted, unable to stent due to occluded bypass valve Heparin x48 hours HypoTN: weaning dobutamine DM: Stable, SSI PRN Holding metformin HTN: restart home meds as able Central line placed 11/12 Other: Full code
[2016-11-13 10:56] LABS: PARTIAL THROMBOPLASTIN RATIO 1.7
[2016-11-13] MEDS ORDERED: HEPARIN IV BOLUS 3,000 UNIT in SYRINGE 0 ML IV SCH (11:30)
[2016-11-13] MEDS ORDERED: HYDROCORTISONE 10 MG TAB PO SCH ×2 (14:00)
[2016-11-13] MEDS: HYDROCORTISONE IV 100 MG in SYRINGE 0 ML IV SCH ×2 (14:10→21:12)
--- NOTE | 2016-11-13 14:22 | Cardiology Consultation ---
Cardiology Consultation CARDIOLOGY FOLLOWUP NOTE Patient Name: Heriberto Lugo Date of : 1940 Date of Service: 11/13/2016 Chief complaint: Follow-up chest pressure SUBJECTIVE: Complete cardiology consultation has already been performed this hospital stay by Dr. Morrell on 11/11/16. Since the patient has a previously established relationship with [facility] practice his current inpatient cardiology care is being transitioned to our service. Patient is comfortable sitting in bed, in ICU room 108. His blood pressure remains borderline hypotensive, but does have an apparent history of relative low blood pressure. Dobutamine has been weaned to off. For the most part his systolic blood pressures have been in the 85 mmHg range. During my assessment the patient was comfortable resting in bed. He denies chest discomfort denies shortness of breath. He describes that his initial presenting symptom was significant chest pain and chest pressure which have improved significantly. His outpatient records were reviewed. Has a history of known coronary artery disease with previous coronary artery bypass grafting in 1992. In July 2015 he was visiting family in [facility] and apparently had chest discomfort at the airport when he arrived in [place]. He was assessed there and apparently diagnosed with a non-ST segment elevation myocardial infarction in which managed medically. His outpatient records reference echocardiogram performed in [facility] at which time the ejection fraction was estimated to be 40-45% . His most recent outpatient EKG was reviewed and was placed on his current chart. The tracing was performed on 09/23/2015 at [facility] and revealed sinus rhythm at 72 bpm with age-indeterminate inferior infarction pattern, and mild ST segment depression in the lateral leads suggestive of ischemia. When compared to the tracings performed this hospital stay, the preceding noted ST segment depression is much more prominent, and is consistent with the patient's presentation with recurrent NSTEMI complicated by acute systolic heart failure. OBJECTIVE: Physical Exam: Last Vital Signs Documentation Date Time Temp Pulse Resp B/P Pulse Ox O2 Delivery O2 Flow Rate FiO2 11/13/16 14:00 72 14 102/45 94 Nasal Cannula 2.0 11/13/16 12:00 36.4 11/12/16 20:00 General: AAOx3, No acute distress Head exam is unremarkable. No scleral icterus of corneal arcus noted. Neck is without jugular venous distension, thyromegally, or carotid bruits. Carotid upstrokes are brisk bilaterally. no bruits Lungs are clear to auscultation and percussion. Cardiac exam reveals the PMI to be normally sized and situated. Rhythm is regular. First and second heart sounds normal. No murmurs, rubs or gallops. Abdominal exam reveals normal bowl sounds, no masses, no organomegaly and no aortic enlargement. Extremities are nonedematous and both femoral and pedal pulses are normal, R femoral catheterization site is clean dry and intact without hematoma. Psychiatric: normal affect and mood. Neurologic: grossly normal, no focal deficits Data: Last Resulted 11/13/16 03:30 Red Blood Count 3.56, Mean Corpuscular Volume 93.5, Mean Corpuscular Hemoglobin 32.0, Mean Corpuscular Hemoglobin Concent 34.2, Mean Platelet Volume 9.7, Neutrophils (%) (Auto) 67.5, Lymphocytes (%) (Auto) 18.3, Monocytes (%) (Auto) 11.9, Eosinophils (%) (Auto) 1.6, Basophils (%) (Auto) 0.2, Neutrophils # (Auto ) 5.44, Lymphocytes # (Auto) 1.48, Monocytes # (Auto) 0.96, Eosinophils # (Auto ) 0.13, Basophils # (Auto) 0.02 Last Resulted 11/13/16 03:30 Past 24 Hours Test 11/13/16 03:30 Range/Units Troponin I 6.770 *H 0-0.045 ng/ml ASSESSMENT: 76 year old male 1. Non-ST segment elevation myocardial infarction, acute by acute systolic heart failure, patient was initially managed conservatively with diuretic therapy and BiPAP, but his cardiac enzymes continued to climb with troponin peaking at 22.6 ng/mL on 11/12/16, 2:39 AM, patient ultimately underwent coronary angiography on 11/12/16 revealing severe eek vessel disease, with patent SNOW to LAD patent SVG to OM, patent SVG to RCA with poor outflow noted to a small eek RCA and diseased RCA distal to the anastomosis, and stump occlusion of an additional saphenous vein graft which is suspected to have been supplying the lateral wall via The obtuse marginal or diagonal. 2. Moderate LV systolic dysfunction, EF decline compared to previous echocardiogram from 2015 PLAN: 1. Dobutamine had been on board for inotropic and blood pressure support and has been weaned off. 2. Diuretics are on hold. 3. Continue current dose of carvedilol, isosorbide mononitrate has been increased. 4. Hold enalapril for now, favor administering the patient medications that will serve as antianginals, and will plan to resume enalapril his blood pressure improves. The patient's troponin is trending down. His symptoms are much improved. Medical management recommended given the diffuse nature of his CAD, suspect that the vein graft which was a stump occlusion was that an acute versus subacute culprit. Leon Underwood DO, FACC
--- NOTE | 2016-11-13 14:25 | Critical Care Progress Note ---
Critical Care Progress Note Date of Service Nov 13, 2016. Attending Dr. Dowd Subjective O complaints this morning, no chest pain no shortness of breath, no dizziness Objective General: Alert well-nourished well-hydrated adult male Cardiovascular: S1-S2 regular rate and rhythm no murmurs rubs gallops Pulmonary: Lungs clear to auscultation bilaterally no wheezes rales rhonchi Abdomen soft nondistended nontender no hepatosplenomegaly Extremities: 2+ pulses, no clubbing cyanosis or edema Neuro: No focal deficits, 5 out of 5 strength. Mental health: Pleasant mood Assessment & Plan (1) Hypotension (arterial) Patient likely euvolemic at present. Still requiring minimal doses of dobutamine, random cortisol less than 8 started hydrocortisone for relative adrenal suppression of unclear etiology in attempt to wean off vasoactive medication (2) Unstable angina Continue heparin for 48 hours, patient remains chest free at this time. (3) Hyperglycemia due to type 2 diabetes mellitus Improved blood sugar control. (4) Diabetes mellitus May benefit from environmental safety specialist and or nutritional consult once out of acute illness. (5) Acute pulmonary edema Continue to monitor strict I&O status (6) Insufficiency, adrenal I believe this is secondary to a stress response. As patient has not been able to be liberated from vasoactive medications I will treat empirically with 100 mg of hydrocortisone Q8 hours I have personally spent 40 minutes of critical care time in the direct management of this patient. This is a life/limb threatening event. This includes time spent evaluating patient, direct bedside care, chart review, placing orders, interpretation of diagnostic studies, discussion with consultants, patient, and family members, as well as other required patient management activities. This time is exclusive of all separately billable procedures, and teaching time and separate from and in addition to any other critical care service time. Data Medications: Current Inpatient Medications Medications (Trade) Dose Ordered Sig/Maximiliano Route Start Time Stop Time Status Last Admin Dose Admin Aspirin (Ecotrin Tab) 81 mg DAILY PO 11/12/16 09:00 12/12/16 08:59 11/13/16 07:48 81 MG Atorvastatin Calcium (Lipitor Tab) 80 mg DAILY PO 11/12/16 09:00 12/12/16 08:59 11/13/16 07:49 80 MG Carvedilol (Coreg Tab) 6.25 mg BID PO 11/11/16 21:00 12/11/16 20:59 11/13/16 07:48 6.25 MG Clopidogrel Bisulfate (plAVix TAB) 75 mg DAILY PO 11/12/16 09:00 12/12/16 08:59 11/13/16 07:49 75 MG Enalapril Maleate (Vasotec Tab) 10 mg DAILY PO 11/12/16 09:00 12/12/16 08:59 Future Hold 11/13/16 07:49 10 MG Lorazepam (Ativan Tab) 0.5 mg Q4H PRN PO 11/11/16 19:00 12/11/16 18:59 Lorazepam (Ativan Tab) 1 mg Q6H PRN PO 11/11/16 19:00 12/11/16 18:59 Lorazepam (Ativan Inj) 1 mg Q6H PRN IV 11/11/16 19:00 12/11/16 18:59 Morphine Sulfate (MoRPHine SULFATE INJ) 2 mg Q2H PRN IV 11/11/16 19:00 11/25/16 18:59 Morphine Sulfate 4 mg 4 mg Q2H PRN IV 11/11/16 19:00 11/25/16 18:59 Nitroglycerin/ Dextrose (Nitroglycerin/ D5w 100 Mcg/Ml) 250 ml @ 0 mls/hr Q0M PRN IV 11/11/16 19:00 12/11/16 18:59 Metoprolol Tartrate (Lopressor Iv) 5 mg Q4H PRN IV 11/11/16 19:00 12/11/16 18:59 Insulin Aspart (novoLOG ASPART) SLIDING SCALE PARAMETER ACHS SC 11/11/16 21:00 12/11/16 20:59 11/13/16 11:05 2 UNITS Glucose (Glucose 40% Gel) 15-30 GRAMS 15 GRAMS... UD PRN PO 11/11/16 19:45 12/11/16 19:44 Glucose (Glucose Chew Tab) 4-8 Tablets 4 Tabl... UD PRN PO 11/11/16 19:45 12/11/16 19:44 Dextrose (Dextrose 50% 50ML Syringe) 25-50ML OF 50% DW IV FOR... UD PRN IV 11/11/16 19:45 12/11/16 19:44 Glucagon 1 mg 1 mg UD PRN SQ 11/11/16 19:45 12/11/16 19:44 Lorazepam/Syringe (Ativan Inj/ Syringe) 1 ml @ 1 mls/min Q6H PRN IV 11/11/16 21:00 12/11/16 20:59 Isosorbide Mononitrate 60 mg 60 mg QAM PO 11/13/16 09:00 12/13/16 08:59 11/13/16 07:49 60 MG Dobutamine HCl (DOBUTamine / D5W) 250 ml @ 0 mls/hr Q0M PRN IV 11/12/16 12:15 12/12/16 12:14 11/12/16 12:25 2 MLS/HR Acetaminophen (Tylenol Tab) 650 mg Q4H PRN PO 11/12/16 15:00 12/12/16 14:59 Ondansetron HCl 4 mg 4 mg Q6H PRN IV 11/12/16 15:00 12/12/16 14:59 Heparin Sodium/ Dextrose 500 ml @ 23 mls/hr [id number] PRN IV 11/12/16 21:00 12/12/16 20:59 11/13/16 04:18 21 MLS/HR Hydrocortisone Sodium Succinate/ Syringe (Solu-Cortef IV/ Syringe) 2 ml @ 4 mls/min TID IV 11/13/16 14:00 12/13/16 13:59 I & O: 24-Hour Column 11/13/16 08:00 Intake Total 2258 ml Output Total 3300 ml Balance -1042 ml Vital Signs: Date Time Temp Pulse Resp B/P Pulse Ox O2 Delivery O2 Flow Rate FiO2 11/13/16 12:00 36.4 69 16 86/39 96 Nasal Cannula 2.0 11/13/16 12:00 96 Humidified Oxygen 2.0 11/13/16 10:00 73 18 117/58 95 Nasal Cannula 3.0 11/13/16 08:00 36.5 93 18 139/72 92 Room Air 11/13/16 08:00 92 11/13/16 06:00 84 12 132/58 95 Humidified Oxygen 3.0 129/68 11/13/16 04:00 95 Humidified Oxygen 2.0 11/13/16 04:00 36.6 89 16 130/55 95 Humidified Oxygen 3.0 134/76 11/13/16 02:00 94 16 95 Humidified Oxygen 3.0 130/69 11/13/16 00:00 36.7 94 14 134/53 94 Humidified Oxygen 3.0 139/68 11/13/16 00:00 96 Humidified Oxygen 3.0 11/12/16 23:00 97 14 129/65 97 Humidified Oxygen 4.0 11/12/16 22:00 91 16 126/53 96 Humidified Oxygen 4.0 120/55 11/12/16 21:00 96 14 96 Humidified Oxygen 4.0 105/53 11/12/16 20:00 96 Humidified Oxygen 4.0 11/12/16 20:00 36.5 98 20 96 Humidified Oxygen 4.0 96/46 11/12/16 19:00 110 17 136/64 96 Humidified Oxygen 4.0 134/68 11/12/16 18:00 36.7 105 13 114/66 96 Nasal Cannula 5.0 118/53 11/12/16 17:00 36.4 98 13 82/53 95 Nasal Cannula 5.0 11/12/16 16:30 36.4 100 17 90/57 95 Nasal Cannula 5.0 11/12/16 16:00 36.4 98 13 82/53 95 Nasal Cannula 5.0 11/12/16 16:00 97 Humidified Oxygen 5.0 100 11/12/16 15:30 36.4 97 20 110/58 95 Nasal Cannula 5.0 11/12/16 15:15 36.4 93 20 110/58 95 Nasal Cannula 5.0 11/12/16 15:00 Room Air 11/12/16 14:55 92 16 127/57 96 Room Air Laboratory Results: Last 24 Hours Test 11/12/16 18:06 11/12/16 19:28 11/12/16 21:21 11/13/16 03:30 Activated Partial Thromboplast Time 27.2 SECONDS 44.3 SECONDS Partial Thromboplastin Ratio 1.0 1.7 Random Cortisol 7.74 mcg/dl Bedside Glucose 163 mg/dl White Blood Count 8.07 K/uL Red Blood Count 3.56 M/uL Hemoglobin 11.4 g/dL Hematocrit 33.3 % Mean Corpuscular Volume 93.5 fL Mean Corpuscular Hemoglobin 32.0 pg Mean Corpuscular Hemoglobin Concent 34.2 g/dl Platelet Count 145 K/uL Mean Platelet Volume 9.7 fL Neutrophils (%) (Auto) 67.5 % Lymphocytes (%) (Auto) 18.3 % Monocytes (%) (Auto) 11.9 % Eosinophils (%) (Auto) 1.6 % Basophils (%) (Auto) 0.2 % Neutrophils # (Auto) 5.44 K/uL Lymphocytes # (Auto) 1.48 K/uL Monocytes # (Auto) 0.96 K/uL Eosinophils # (Auto) 0.13 K/uL Basophils # (Auto) 0.02 K/uL RDW Standard Deviation 49.0 fL RDW Coefficient of Variation 14.3 % Immature Granulocyte % (Auto) 0.5 % Immature Granulocyte # (Auto) 0.04 K/uL Sodium Level 141 mmol/L Potassium Level 3.8 mmol/L Chloride Level 107 mmol/L Carbon Dioxide Level 25 mmol/L Anion Gap 9.0 mmol/L Blood Urea Nitrogen 29 mg/dl Creatinine 1.40 mg/dl Est Creatinine Clear Calc Drug Dose 49.9 ml/min Estimated GFR () 56.2 Estimated GFR (Non- 48.5 BUN/Creatinine Ratio 20.8 Random Glucose 147 mg/dl Calcium Level 7.6 mg/dl Total Bilirubin 0.7 mg/dl Direct Bilirubin 0.2 mg/dl Aspartate Amino Transf (AST/SGOT) 38 U/L Alanine Aminotransferase (ALT/SGPT) 37 U/L Alkaline Phosphatase 66 U/L Troponin I 6.770 ng/ml Total Protein 5.9 gm/dl Albumin 3.2 gm/dl Test 11/13/16 06:43 11/13/16 10:30 Bedside Glucose 151 mg/dl Activated Partial Thromboplast Time 44.1 SECONDS Partial Thromboplastin Ratio 1.7
[2016-11-13 18:18] LABS: PARTIAL THROMBOPLASTIN RATIO 2.2
[2016-11-14] VITALS (12 sets, daily range): BP systolic 94–155; BP diastolic 49–81; PULSE 70–85; TEMP 36.2–36.7; O2SAT 93–99
[2016-11-14 05:38] LABS: BASO % 0.1 %; BASO ABS # 0.01 K/uL (0-0.2); COMPLETE YES; HEMATOCRIT 34.1 % (42-52); IG% 0.1 %; LYMPH % 9.5 %; LYMPH ABS # 0.77 K/uL (1.2-3.4); MEAN CELL VOLUME 93.2 fL (80-100); MEAN CORPUSCULAR HGB CONC 34.3 g/dl (32-36); MEAN PLATELET VOLUME 10.3 fL (7.4-10.4); MONO % 6.7 %; NEUT % 83.6 %; PLATELET COUNT 142 K/uL (130-400); RED BLOOD COUNT 3.66 M/uL (4.7-6.1); WHITE BLOOD COUNT 8.11 K/uL (4.8-10.8)
[2016-11-14 06:00] LABS: PARTIAL THROMBOPLASTIN RATIO 1.2
[2016-11-14 06:07] LABS: BUN/CREATININE RATIO 21.2 (10-20); CREATININE 1.3 mg/dl (0.60-1.40); POTASSIUM 4.2 mmol/L (3.5-5.1)
[2016-11-14] MEDS ORDERED: HEPARIN IV BOLUS 4,500 UNIT in SYRINGE 0 ML IV ONE (07:00)
[2016-11-14] MEDS: INSULIN ASPART 100 UNITS/ML 3 ML PEN SC SCH ×4 (07:29→21:36)
[2016-11-14] MEDS: HYDROCORTISONE IV 100 MG in SYRINGE 0 ML IV SCH (07:31)
[2016-11-14] MEDS: CARVEDILOL 6.25 MG TAB PO SCH ×2 (07:32→21:37)
[2016-11-14] MEDS: CLOPIDOGREL BISULFATE 75 MG TAB PO SCH (07:32)
[2016-11-14] MEDS: ASPIRIN 81 MG ECTAB PO SCH (07:32)
[2016-11-14] MEDS: ISOSORBIDE MONONITRATE 60 MG TABCR PO SCH (07:32)
[2016-11-14] MEDS: ATORVASTATIN 40 MG TAB PO SCH (07:32)
--- NOTE | 2016-11-14 11:07 | Cardiology Follow-Up ---
Subjective General Date of Service: Nov 14, 2016. Chief Complaint: follow up chest pain, shortness of breath Pt evaluation today including: conversation w/ patient, physical exam, conversation w/ employee relations consultant History of Present Illness The patient is a 76 year old male seen in follow up today. Patient denies chest pain or SOB. Telemetry reveals stable SR. Pt had a few transient episodes of low BP that were associated with coughing spells and her perhaps vasovagal in etiology. Allergies Coded Allergies: No Known Allergies (Unverified , 11/11/16) Social History Smoking Status: Former Smoker (20 pack year hx quit in 's) Hx Tobacco Use In Past Year?: No Hx Alcohol Use - Type And Amou: Yes (2 DRINKS 4-5 DAYS/WEEK) Hx Substance Use - Type And Am: No Problem List Medical Problems: (1) Acute pulmonary edema Status: Acute Physical Exam Vital Signs Last Vital Signs Documentation Date Time Temp Pulse Resp B/P Pulse Ox O2 Delivery O2 Flow Rate FiO2 11/14/16 08:00 36.2 85 18 123/73 99 Nasal Cannula 2.0 155/81 11/12/16 20:00 Physical Exam Constitutional: Level of Distress: NAD Head: normocephalic ENMT: normal ENT inspection Neck: supple Lungs: Auscultation: no wheezing, no rales/crackles, no rhonchi Cardiovascular: Heart Auscultation: RRR, no murmurs Abdomen: Inspection & Palpation: soft, non-distended, no tenderness, guarding & rebound Extremities: no edema Neurologic: Gait & Station: pertinent finding (no focal deficits ) Assessment and Plan Assessment and Plan Echocardiogram performed the admission on 11/12/16 -images reviewed independently Diffuse global LV hypokinesis is present with LVEF in the 30-35% range Moderate left atrial enlargement Grade II diastolic dysfunction with Doppler evidence of increase LA/ LV filling pressure Mild MR IMPRESSION: 76 year old male 1. Non-ST segment elevation myocardial infarction, acute by acute systolic heart failure, patient was initially managed conservatively with diuretic therapy and BiPAP, but his cardiac enzymes continued to climb with troponin peaking at 22.6 ng/mL on 11/12/16, 2:39 AM, patient ultimately underwent coronary angiography on 11/12/16 revealing severe [place] vessel disease, with patent SNOW to LAD patent SVG to OM, patent SVG to RCA with poor outflow noted to a small [place] RCA and diseased RCA distal to the anastomosis, and stump occlusion of an additional saphenous vein graft which is suspected to have been supplying the lateral wall via the obtuse marginal or diagonal. 2. Moderate LV systolic dysfunction, EF decline compared to previous echocardiogram from 2015 PLAN: DC heparin. Continue to hold ACEI / ARB given relatively low BP episodes. Continue ASA, Plavix, Coreg, Imdur. Holding diuretics for now, but anticipate will need daily diuretics at discharge. Disposition: plan for patient to follow up locally with our practice. Case discuss with nursing and critical care-stable to DC mcmahan, and IJ central line. Sharee Underwood, Laboratory Results Last 24 Hours Test 11/13/16 11:02 11/13/16 15:40 11/13/16 17:50 11/13/16 21:06 Bedside Glucose 205 mg/dl 218 mg/dl 244 mg/dl Activated Partial Thromboplast Time 56.9 SECONDS Partial Thromboplastin Ratio 2.2 Test 11/14/16 05:10 White Blood Count 8.11 K/uL Red Blood Count 3.66 M/uL Hemoglobin 11.7 g/dL Hematocrit 34.1 % Mean Corpuscular Volume 93.2 fL Mean Corpuscular Hemoglobin 32.0 pg Mean Corpuscular Hemoglobin Concent 34.3 g/dl Platelet Count 142 K/uL Mean Platelet Volume 10.3 fL Neutrophils (%) (Auto) 83.6 % Lymphocytes (%) (Auto) 9.5 % Monocytes (%) (Auto) 6.7 % Eosinophils (%) (Auto) 0.0 % Basophils (%) (Auto) 0.1 % Neutrophils # (Auto) 6.78 K/uL Lymphocytes # (Auto) 0.77 K/uL Monocytes # (Auto) 0.54 K/uL Eosinophils # (Auto) 0.00 K/uL Basophils # (Auto) 0.01 K/uL RDW Standard Deviation 47.2 fL RDW Coefficient of Variation 13.9 % Immature Granulocyte % (Auto) 0.1 % Immature Granulocyte # (Auto) 0.01 K/uL Activated Partial Thromboplast Time 31.2 SECONDS Partial Thromboplastin Ratio 1.2 Sodium Level 141 mmol/L Potassium Level 4.2 mmol/L Chloride Level 108 mmol/L Carbon Dioxide Level 24 mmol/L Anion Gap 9.0 mmol/L Blood Urea Nitrogen 28 mg/dl Creatinine 1.30 mg/dl Est Creatinine Clear Calc Drug Dose 53.6 ml/min Estimated GFR () 61.4 Estimated GFR (Non- 53.0 BUN/Creatinine Ratio 21.2 Random Glucose 185 mg/dl Calcium Level 8.0 mg/dl Total Bilirubin 0.7 mg/dl Direct Bilirubin 0.2 mg/dl Aspartate Amino Transf (AST/SGOT) 22 U/L Alanine Aminotransferase (ALT/SGPT) 29 U/L Alkaline Phosphatase 67 U/L Total Protein 6.3 gm/dl Albumin 3.1 gm/dl
--- NOTE | 2016-11-14 11:14 | Progress Note ---
Subjective Date of Service: Nov 14, 2016. Subjective Pt evaluation today including: conversation w/ patient, chart review, lab review, conversation w/ program consultant Pt still with coughing fits, but no longer with chest pain at all. No SOB. Ate without issue. Pt denies fever, SOB, chest pain, abd pain, n/v/c/d, LE pain or swelling. ROS as noted above, otherwise neg. Nursing states that with the coughing fits BP drops a bit, but is more stable shortly after. Has been off dobutamine. Problem List Medical Problems: (1) Acute pulmonary edema Status: Acute Objective Vital Signs Date Time Temp Pulse Resp B/P Pulse Ox O2 Delivery O2 Flow Rate FiO2 11/14/16 08:00 36.2 85 18 123/73 99 Nasal Cannula 2.0 155/81 11/14/16 08:00 99 Humidified Oxygen 2.0 11/14/16 06:00 70 14 109/58 96 Nasal Cannula 2.0 112/53 11/14/16 04:00 36.5 73 16 121/69 93 Nasal Cannula 2.0 11/14/16 04:00 Humidified Oxygen 2.0 11/14/16 02:00 75 17 107/63 96 Nasal Cannula 2.0 11/14/16 00:00 36.4 79 17 119/69 93 Room Air 118/62 11/14/16 00:00 Humidified Oxygen 2.0 11/13/16 22:00 82 17 115/62 94 Room Air 116/54 11/13/16 20:00 Humidified Oxygen 2.0 11/13/16 20:00 36.5 84 18 129/66 97 Nasal Cannula 2.0 130/61 11/13/16 18:00 85 16 118/64 95 Nasal Cannula 2.0 101/64 11/13/16 16:00 36.4 87 22 124/69 95 Nasal Cannula 3.0 11/13/16 16:00 93 Humidified Oxygen 3.0 11/13/16 14:00 72 14 102/45 94 Nasal Cannula 2.0 11/13/16 12:00 36.4 69 16 86/39 96 Nasal Cannula 2.0 11/13/16 12:00 96 Humidified Oxygen 2.0 Physical Exam Comments: General Appearance: WD/WN, no apparent distress Respiratory/Chest: normal breath sounds, no respiratory distress Cardiovascular: regular rate, rhythm, no edema Abdomen: non tender, soft Extremities: non-tender, no pedal edema Neurologic/Psychiatric: alert, normal mood/affect Skin: warm/dry, + pertinent finding (b/lred and flaking patches on anterior ankle c/w psoriasis) Laboratory Results Last 24 Hours Test 11/13/16 15:40 11/13/16 17:50 11/13/16 21:06 11/14/16 05:10 Bedside Glucose 218 mg/dl 244 mg/dl Activated Partial Thromboplast Time 56.9 SECONDS 31.2 SECONDS Partial Thromboplastin Ratio 2.2 1.2 White Blood Count 8.11 K/uL Red Blood Count 3.66 M/uL Hemoglobin 11.7 g/dL Hematocrit 34.1 % Mean Corpuscular Volume 93.2 fL Mean Corpuscular Hemoglobin 32.0 pg Mean Corpuscular Hemoglobin Concent 34.3 g/dl Platelet Count 142 K/uL Mean Platelet Volume 10.3 fL Neutrophils (%) (Auto) 83.6 % Lymphocytes (%) (Auto) 9.5 % Monocytes (%) (Auto) 6.7 % Eosinophils (%) (Auto) 0.0 % Basophils (%) (Auto) 0.1 % Neutrophils # (Auto) 6.78 K/uL Lymphocytes # (Auto) 0.77 K/uL Monocytes # (Auto) 0.54 K/uL Eosinophils # (Auto) 0.00 K/uL Basophils # (Auto) 0.01 K/uL RDW Standard Deviation 47.2 fL RDW Coefficient of Variation 13.9 % Immature Granulocyte % (Auto) 0.1 % Immature Granulocyte # (Auto) 0.01 K/uL Sodium Level 141 mmol/L Potassium Level 4.2 mmol/L Chloride Level 108 mmol/L Carbon Dioxide Level 24 mmol/L Anion Gap 9.0 mmol/L Blood Urea Nitrogen 28 mg/dl Creatinine 1.30 mg/dl Est Creatinine Clear Calc Drug Dose 53.6 ml/min Estimated GFR () 61.4 Estimated GFR (Non- 53.0 BUN/Creatinine Ratio 21.2 Random Glucose 185 mg/dl Calcium Level 8.0 mg/dl Total Bilirubin 0.7 mg/dl Direct Bilirubin 0.2 mg/dl Aspartate Amino Transf (AST/SGOT) 22 U/L Alanine Aminotransferase (ALT/SGPT) 29 U/L Alkaline Phosphatase 67 U/L Total Protein 6.3 gm/dl Albumin 3.1 gm/dl Assessment and Plan 76 y/o M who was admitted on 11/11 with chest pain and SOB CP/SOB: Improved with lasix and thought possibly related to CHF given neg trop Trop with initial increase, now trending down ICU/cards management as noted Pt with hx of CAD s/p CABG Cath report noted, unable to stent due to occluded bypass valve Heparin x48 hours which will complete today HypoTN: off dobutamine, still with a bit of hypoTN with coughing fits--likely vasovagal hydrocortisone added yesterday for potential adrenal suppression DM: Stable, SSI PRN Holding metformin HTN: restart home meds as able Central line placed 11/12 Other: Full code
--- NOTE | 2016-11-14 12:58 | Critical Care Progress Note ---
Critical Care Progress Note Date of Service Nov 14, 2016. Attending Dr. Dowd Objective General: Alert well-nourished well-hydrated adult male Cardiovascular: S1-S2 regular rate and rhythm no murmurs rubs gallops Pulmonary: Lungs clear to auscultation bilaterally no wheezes rales rhonchi Abdomen soft nondistended nontender no hepatosplenomegaly Extremities: 2+ pulses, no clubbing cyanosis or edema Neuro: No focal deficits, 5 out of 5 strength. Mental health: Pleasant mood Assessment & Plan (1) Hypotension (arterial) Patient man off vasoactive's for greater than 24 hours. Does experience episodes of cough after which he becomes relatively hypotensive however does not lose any of his mental status. I believe this is a vasovagal response. (2) Cough As noted above (3) Vasovagal reaction As noted above (4) Unstable angina Remains chest pain-free, discontinuing heparin today has been on for 48 hours. (5) Hyperglycemia due to type 2 diabetes mellitus Improved blood sugar control. (6) Diabetes mellitus May benefit from natural resources extension educator and or nutritional consult once out of acute illness. (7) Acute pulmonary edema Aj can be removed today (8) Insufficiency, adrenal Likely able to be weaned rapidly decreased to 100 mg twice a day GI prophylaxis: Not indicated, was not on PPI prior to arrival and is eating. DVT prophylaxis: Subcutaneous Lovenox as ordered by Dr. Underwood I discussed this case both with cardiology Dr. Underwood and hospitalist service Dr. Parrish, patient has high complexity total time coordinating care was 45 minutes. Patient will be transferred to telemetry status Data Medications: Current Inpatient Medications Medications (Trade) Dose Ordered Sig/[facility] Route Start Time Stop Time Status Last Admin Dose Admin Aspirin (Ecotrin Tab) 81 mg DAILY PO 11/12/16 09:00 12/12/16 08:59 11/14/16 07:32 81 MG Atorvastatin Calcium (Lipitor Tab) 80 mg DAILY PO 11/12/16 09:00 12/12/16 08:59 11/14/16 07:32 80 MG Carvedilol (Coreg Tab) 6.25 mg BID PO 11/11/16 21:00 12/11/16 20:59 11/14/16 07:32 6.25 MG Clopidogrel Bisulfate (plAVix TAB) 75 mg DAILY PO 11/12/16 09:00 12/12/16 08:59 11/14/16 07:32 75 MG Enalapril Maleate (Vasotec Tab) 10 mg DAILY PO 11/12/16 09:00 12/12/16 08:59 Future Hold 11/13/16 07:49 10 MG Lorazepam (Ativan Tab) 0.5 mg Q4H PRN PO 11/11/16 19:00 12/11/16 18:59 Lorazepam (Ativan Tab) 1 mg Q6H PRN PO 11/11/16 19:00 12/11/16 18:59 Lorazepam (Ativan Inj) 1 mg Q6H PRN IV 11/11/16 19:00 12/11/16 18:59 Morphine Sulfate (MoRPHine SULFATE INJ) 2 mg Q2H PRN IV 11/11/16 19:00 11/25/16 18:59 Morphine Sulfate 4 mg 4 mg Q2H PRN IV 11/11/16 19:00 11/25/16 18:59 Nitroglycerin/ Dextrose (Nitroglycerin/ D5w 100 Mcg/Ml) 250 ml @ 0 mls/hr Q0M PRN IV 11/11/16 19:00 12/11/16 18:59 Insulin Aspart (novoLOG ASPART) SLIDING SCALE PARAMETER ACHS SC 11/11/16 21:00 12/11/16 20:59 11/14/16 10:43 3 UNITS Glucose (Glucose 40% Gel) 15-30 GRAMS 15 GRAMS... UD PRN PO 11/11/16 19:45 12/11/16 19:44 Glucose (Glucose Chew Tab) 4-8 Tablets 4 Tabl... UD PRN PO 11/11/16 19:45 12/11/16 19:44 Dextrose (Dextrose 50% 50ML Syringe) 25-50ML OF 50% DW IV FOR... UD PRN IV 11/11/16 19:45 12/11/16 19:44 Glucagon 1 mg 1 mg UD PRN SQ 11/11/16 19:45 12/11/16 19:44 Lorazepam/Syringe (Ativan Inj/ Syringe) 1 ml @ 1 mls/min Q6H PRN IV 11/11/16 21:00 12/11/16 20:59 Isosorbide Mononitrate (Imdur Ext Rel Tab) 60 mg QAM PO 11/13/16 09:00 26/17 08:59 11/14/16 07:32 60 MG Acetaminophen (Tylenol Tab) 650 mg Q4H PRN PO 11/12/16 15:00 12/12/16 14:59 Ondansetron HCl 4 mg 4 mg Q6H PRN IV 11/12/16 15:00 12/12/16 14:59 Hydrocortisone Sodium Succinate/ Syringe (Solu-Cortef IV/ Syringe) 2 ml @ 4 mls/min TID IV 11/13/16 14:00 12/13/16 13:59 11/14/16 07:31 4 MLS/MIN I & O: 24-Hour Column 11/14/16 08:00 Intake Total 2079 ml Output Total 1625 ml Balance 454 ml Vital Signs: Date Time Temp Pulse Resp B/P Pulse Ox O2 Delivery O2 Flow Rate FiO2 11/14/16 12:00 36.7 79 20 94/49 96 Nasal Cannula 2.0 11/14/16 12:00 97 Humidified Oxygen 2.0 11/14/16 08:00 36.2 85 18 123/73 99 Nasal Cannula 2.0 155/81 11/14/16 08:00 99 Humidified Oxygen 2.0 11/14/16 06:00 70 14 109/58 96 Nasal Cannula 2.0 112/53 11/14/16 04:00 36.5 73 16 121/69 93 Nasal Cannula 2.0 11/14/16 04:00 Humidified Oxygen 2.0 11/14/16 02:00 75 17 107/63 96 Nasal Cannula 2.0 11/14/16 00:00 36.4 79 17 119/69 93 Room Air 118/62 11/14/16 00:00 Humidified Oxygen 2.0 11/13/16 22:00 82 17 115/62 94 Room Air 116/54 11/13/16 20:00 Humidified Oxygen 2.0 11/13/16 20:00 36.5 84 18 129/66 97 Nasal Cannula 2.0 130/61 11/13/16 18:00 85 16 118/64 95 Nasal Cannula 2.0 101/64 11/13/16 16:00 36.4 87 22 124/69 95 Nasal Cannula 3.0 11/13/16 16:00 93 Humidified Oxygen 3.0 11/13/16 14:00 72 14 102/45 94 Nasal Cannula 2.0 Laboratory Results: Last 24 Hours Test 11/13/16 15:40 11/13/16 17:50 11/13/16 21:06 11/14/16 05:10 Bedside Glucose 218 mg/dl 244 mg/dl Activated Partial Thromboplast Time 56.9 SECONDS 31.2 SECONDS Partial Thromboplastin Ratio 2.2 1.2 White Blood Count 8.11 K/uL Red Blood Count 3.66 M/uL Hemoglobin 11.7 g/dL Hematocrit 34.1 % Mean Corpuscular Volume 93.2 fL Mean Corpuscular Hemoglobin 32.0 pg Mean Corpuscular Hemoglobin Concent 34.3 g/dl Platelet Count 142 K/uL Mean Platelet Volume 10.3 fL Neutrophils (%) (Auto) 83.6 % Lymphocytes (%) (Auto) 9.5 % Monocytes (%) (Auto) 6.7 % Eosinophils (%) (Auto) 0.0 % Basophils (%) (Auto) 0.1 % Neutrophils # (Auto) 6.78 K/uL Lymphocytes # (Auto) 0.77 K/uL Monocytes # (Auto) 0.54 K/uL Eosinophils # (Auto) 0.00 K/uL Basophils # (Auto) 0.01 K/uL RDW Standard Deviation 47.2 fL RDW Coefficient of Variation 13.9 % Immature Granulocyte % (Auto) 0.1 % Immature Granulocyte # (Auto) 0.01 K/uL Sodium Level 141 mmol/L Potassium Level 4.2 mmol/L Chloride Level 108 mmol/L Carbon Dioxide Level 24 mmol/L Anion Gap 9.0 mmol/L Blood Urea Nitrogen 28 mg/dl Creatinine 1.30 mg/dl Est Creatinine Clear Calc Drug Dose 53.6 ml/min Estimated GFR () 61.4 Estimated GFR (Non- 53.0 BUN/Creatinine Ratio 21.2 Random Glucose 185 mg/dl Calcium Level 8.0 mg/dl Total Bilirubin 0.7 mg/dl Direct Bilirubin 0.2 mg/dl Aspartate Amino Transf (AST/SGOT) 22 U/L Alanine Aminotransferase (ALT/SGPT) 29 U/L Alkaline Phosphatase 67 U/L Total Protein 6.3 gm/dl Albumin 3.1 gm/dl
[2016-11-14 14:09] LABS: PROTHROMBIN TIME (PATIENT) 10.9 SECONDS (9.0-12.0)
[2016-11-14] MEDS ORDERED: HYDROCORTISONE IV 100 MG in SYRINGE 0 ML IV SCH (21:00)
[2016-11-15] VITALS (7 sets, daily range): BP systolic 105–138; BP diastolic 58–82; PULSE 69–95; TEMP 36.5–36.7; O2SAT 96–99
[2016-11-15 05:54] LABS: BASO % 0.1 %; BASO ABS # 0.01 K/uL (0-0.2); COMPLETE YES; EOS % 0.1 %; HEMATOCRIT 36.9 % (42-52); IG% 0.3 %; LYMPH % 9.9 %; LYMPH ABS # 0.92 K/uL (1.2-3.4); MEAN CELL VOLUME 93.7 fL (80-100); MEAN CORPUSCULAR HEMOGLOBIN 31.2 pg (25-34); MEAN CORPUSCULAR HGB CONC 33.3 g/dl (32-36); MEAN PLATELET VOLUME 10.4 fL (7.4-10.4); MONO % 6.8 %; NEUT % 82.8 %; PLATELET COUNT 160 K/uL (130-400); RED BLOOD COUNT 3.94 M/uL (4.7-6.1); WHITE BLOOD COUNT 9.31 K/uL (4.8-10.8)
[2016-11-15 06:27] LABS: BUN/CREATININE RATIO 20.4 (10-20); CALCIUM 8.2 mg/dl (8.5-10.1); CREATININE 1.4 mg/dl (0.60-1.40); POTASSIUM 4.6 mmol/L (3.5-5.1)
[2016-11-15] MEDS: ENOXAPARIN 40 MG/0.4 ML SYR SQ SCH (08:02)
[2016-11-15] MEDS: ATORVASTATIN 40 MG TAB PO SCH (08:02)
[2016-11-15] MEDS: CARVEDILOL 6.25 MG TAB PO SCH ×2 (08:02→21:15)
[2016-11-15] MEDS: ASPIRIN 81 MG ECTAB PO SCH (08:03)
[2016-11-15] MEDS: CLOPIDOGREL BISULFATE 75 MG TAB PO SCH (08:03)
[2016-11-15] MEDS: ISOSORBIDE MONONITRATE 60 MG TABCR PO SCH (08:03)
[2016-11-15] MEDS: INSULIN ASPART 100 UNITS/ML 3 ML PEN SC SCH ×4 (08:04→21:16)
--- NOTE | 2016-11-15 08:43 | Progress Note ---
Subjective Subjective Date of Service: Nov 15, 2016. Pt evaluation today including: conversation w/ patient, physical exam, chart review, review of studies, review of inpatient medication list Notes: off drips, c/o chest discomfort Problem List Medical Problems: (1) Acute pulmonary edema Status: Acute Review of Systems Constitutional: No fever ENT: No hearing loss Cardiac: No chest pain Abdomen: No pain Male : No dysuria Neurologic: No memory loss Psychiatric: No depression symptoms Endo: No fatigue Physical Exam Vital Signs Vital Signs Past 24 Hours: Date Time Temp Pulse Resp B/P Pulse Ox O2 Delivery O2 Flow Rate FiO2 11/15/16 08:00 36.5 95 16 126/70 99 Nasal Cannula 2.0 11/15/16 08:00 Nasal Cannula 2.0 11/15/16 04:00 97 Nasal Cannula 2.0 11/15/16 04:00 36.5 76 15 114/70 96 Nasal Cannula 2.0 11/15/16 00:00 97 Nasal Cannula 2.0 11/14/16 23:55 36.6 82 14 132/79 97 Nasal Cannula 2.0 11/14/16 20:00 36.6 74 16 126/70 99 Nasal Cannula 2.0 11/14/16 19:50 97 Nasal Cannula 2.0 11/14/16 18:00 78 16 133/62 99 Nasal Cannula 2.0 11/14/16 16:00 Humidified Oxygen 2.0 11/14/16 16:00 36.7 83 24 118/69 94 Nasal Cannula 2.0 11/14/16 14:00 77 18 113/49 98 Nasal Cannula 2.0 11/14/16 12:00 36.7 79 20 94/49 96 Nasal Cannula 2.0 11/14/16 12:00 97 Humidified Oxygen 2.0 Physical Exam: General Appearance: WD/WN, no apparent distress Eyes: bilateral eyes normal inspection ENT: hearing grossly normal, pharynx normal Neck: supple, no JVD Respiratory/Chest: lungs clear, normal breath sounds Cardiovascular: no edema, no murmur Abdomen: soft Extremities: non-tender Neurologic/Psychiatric: alert Skin: normal color Medications Medications: Current Inpatient Medications Medications (Trade) Dose Ordered Sig/[facility] Route Start Time Stop Time Status Last Admin Dose Admin Aspirin (Ecotrin Tab) 81 mg DAILY PO 11/12/16 09:00 12/12/16 08:59 11/15/16 08:03 81 MG Atorvastatin Calcium (Lipitor Tab) 80 mg DAILY PO 11/12/16 09:00 12/12/16 08:59 11/15/16 08:02 80 MG Carvedilol (Coreg Tab) 6.25 mg BID PO 11/11/16 21:00 12/11/16 20:59 11/15/16 08:02 6.25 MG Clopidogrel Bisulfate (plAVix TAB) 75 mg DAILY PO 11/12/16 09:00 12/12/16 08:59 11/15/16 08:03 75 MG Enalapril Maleate (Vasotec Tab) 10 mg DAILY PO 11/12/16 09:00 12/12/16 08:59 Future Hold 11/13/16 07:49 10 MG Lorazepam (Ativan Tab) 0.5 mg Q4H PRN PO 11/11/16 19:00 12/11/16 18:59 Lorazepam (Ativan Tab) 1 mg Q6H PRN PO 11/11/16 19:00 12/11/16 18:59 Lorazepam (Ativan Inj) 1 mg Q6H PRN IV 11/11/16 19:00 12/11/16 18:59 Morphine Sulfate (MoRPHine SULFATE INJ) 2 mg Q2H PRN IV 11/11/16 19:00 11/25/16 18:59 Morphine Sulfate (MoRPHine SULFATE INJ) 4 mg Q2H PRN IV 11/11/16 19:00 11/25/16 18:59 Insulin Aspart (novoLOG ASPART) SLIDING SCALE PARAMETER ACHS SC 11/11/16 21:00 12/11/16 20:59 11/15/16 08:04 3 UNITS Glucose (Glucose 40% Gel) 15-30 GRAMS 15 GRAMS... UD PRN PO 11/11/16 19:45 12/11/16 19:44 Glucose (Glucose Chew Tab) 4-8 Tablets 4 Tabl... UD PRN PO 11/11/16 19:45 12/11/16 19:44 Dextrose (Dextrose 50% 50ML Syringe) 25-50ML OF 50% DW IV FOR... UD PRN IV 11/11/16 19:45 12/11/16 19:44 Glucagon 1 mg 1 mg UD PRN SQ 11/11/16 19:45 12/11/16 19:44 Lorazepam/Syringe (Ativan Inj/ Syringe) 1 ml @ 1 mls/min Q6H PRN IV 11/11/16 21:00 12/11/16 20:59 Isosorbide Mononitrate (Imdur Ext Rel Tab) 60 mg QAM PO 11/13/16 09:00 12/13/16 08:59 11/15/16 08:03 60 MG Acetaminophen (Tylenol Tab) 650 mg Q4H PRN PO 11/12/16 15:00 12/12/16 14:59 Ondansetron HCl (Zofran Inj) 4 mg Q6H PRN IV 11/12/16 15:00 12/12/16 14:59 Enoxaparin Sodium (Lovenox Inj) 40 mg QAM SQ 11/15/16 09:00 12/15/16 08:59 11/15/16 08:02 40 MG Laboratory Data Labs: Last 24 Hours Test 11/14/16 10:41 11/14/16 13:56 11/14/16 16:09 11/14/16 21:35 Bedside Glucose 239 mg/dl 275 mg/dl 154 mg/dl Prothrombin Time 10.9 SECONDS Prothromb Time International Ratio 1.0 Activated Partial Thromboplast Time 27.1 SECONDS Partial Thromboplastin Ratio 1.0 Test 11/15/16 05:45 11/15/16 06:30 White Blood Count 9.31 K/uL Red Blood Count 3.94 M/uL Hemoglobin 12.3 g/dL Hematocrit 36.9 % Mean Corpuscular Volume 93.7 fL Mean Corpuscular Hemoglobin 31.2 pg Mean Corpuscular Hemoglobin Concent 33.3 g/dl Platelet Count 160 K/uL Mean Platelet Volume 10.4 fL Neutrophils (%) (Auto) 82.8 % Lymphocytes (%) (Auto) 9.9 % Monocytes (%) (Auto) 6.8 % Eosinophils (%) (Auto) 0.1 % Basophils (%) (Auto) 0.1 % Neutrophils # (Auto) 7.71 K/uL Lymphocytes # (Auto) 0.92 K/uL Monocytes # (Auto) 0.63 K/uL Eosinophils # (Auto) 0.01 K/uL Basophils # (Auto) 0.01 K/uL RDW Standard Deviation 47.5 fL RDW Coefficient of Variation 13.9 % Immature Granulocyte % (Auto) 0.3 % Immature Granulocyte # (Auto) 0.03 K/uL Sodium Level 139 mmol/L Potassium Level 4.6 mmol/L Chloride Level 105 mmol/L Carbon Dioxide Level 26 mmol/L Anion Gap 8.0 mmol/L Blood Urea Nitrogen 29 mg/dl Creatinine 1.40 mg/dl Est Creatinine Clear Calc Drug Dose 49.7 ml/min Estimated GFR () 56.2 Estimated GFR (Non- 48.5 BUN/Creatinine Ratio 20.4 Random Glucose 226 mg/dl Calcium Level 8.2 mg/dl Total Bilirubin 0.7 mg/dl Direct Bilirubin 0.2 mg/dl Aspartate Amino Transf (AST/SGOT) 17 U/L Alanine Aminotransferase (ALT/SGPT) 36 U/L Alkaline Phosphatase 77 U/L Total Protein 6.8 gm/dl Albumin 3.5 gm/dl Bedside Glucose 221 mg/dl Assessment and Plan 76 y/o M who was admitted on 11/11 with chest pain and SOB CP/SOB: Improved with lasix and thought possibly related to CHF given neg trop Trop with initial increase, now trending down ICU/cards management as noted Pt with hx of CAD s/p CABG Cath report noted, unable to stent due to occluded bypass valve Heparin IV was given for 48 hours which completed yesterday Talked to Dr Underwood, will keep patient on tele another day to see if LifeVest is ok for this patient and continue monitoring his heart rate and BP , needs f/u ECHO in 3 months HypoTN: off dobutamine,-likely vasovagal, improved hydrocortisone stopped, DM: Stable, SSI PRN Holding metformin HTN: restart home meds Central line removed Other: Full code
--- NOTE | 2016-11-15 10:28 | Cardiology Follow-Up ---
Subjective General Date of Service: Nov 15, 2016. Chief Complaint: follow up chest pain, shortness of breath Pt evaluation today including: conversation w/ patient, physical exam History of Present Illness The patient is a 76 year old male seen in follow up. Patient is sitting in the bedside chair. He feels well. Denies angina or shortness of breath. Since seeing him yesterday , his heparin infusion was discontinue, IJ central line removed, and his mcmahan catheter has been removed. He reports being able to void without difficulty. Blood pressures have normalized. Allergies Coded Allergies: No Known Allergies (Unverified , 11/11/16) Social History Smoking Status: Former Smoker (20 pack year hx quit in 's) Hx Tobacco Use In Past Year?: No Hx Alcohol Use - Type And Amou: Yes (2 DRINKS 4-5 DAYS/WEEK) Hx Substance Use - Type And Am: No Problem List Medical Problems: (1) Acute pulmonary edema Status: Acute Physical Exam Vital Signs Last Vital Signs Documentation Date Time Temp Pulse Resp B/P Pulse Ox O2 Delivery O2 Flow Rate FiO2 11/15/16 08:00 36.5 95 16 126/70 99 Nasal Cannula 2.0 11/12/16 20:00 Physical Exam Constitutional: Level of Distress: NAD Head: normocephalic ENMT: normal ENT inspection Neck: supple Lungs: Auscultation: no wheezing, no rales/crackles, no rhonchi Cardiovascular: Heart Auscultation: RRR, no murmurs Abdomen: Inspection & Palpation: soft, non-distended, no tenderness, guarding & rebound Extremities: no edema Neurologic: Gait & Station: pertinent finding (no focal deficits ) Assessment and Plan Assessment and Plan Echocardiogram performed the admission on 11/12/16 -images reviewed independently Diffuse global LV hypokinesis is present with LVEF in the 30-35% range Moderate left atrial enlargement Grade II diastolic dysfunction with Doppler evidence of increase LA/ LV filling pressure Mild MR IMPRESSION: 76 year old male 1. Non-ST segment elevation myocardial infarction, acute by acute systolic heart failure, patient was initially managed conservatively with diuretic therapy and BiPAP, but his cardiac enzymes continued to climb with troponin peaking at 22.6 ng/mL on 11/12/16, 2:39 AM, patient ultimately underwent coronary angiography on 11/12/16 revealing severe [place] vessel disease, with patent SNOW to LAD patent SVG to OM, patent SVG to RCA with poor outflow noted to a small [place] RCA and diseased RCA distal to the anastomosis, and stump occlusion of an additional saphenous vein graft which is suspected to have been supplying the lateral wall via the obtuse marginal or diagonal. 2. Moderate LV systolic dysfunctionLV EF 30-35%, EF declined compared to previous echocardiogram from 2015. PLAN: Continue ASA, Plavix, Coreg, resume enalapril. Moving forward will likely need daily oral diuretic, and will consider adding furosemide 20 mg PO daily tomorrow. OK for transfer out of ICU to PCU. Increase activity as tolerated. We discussed that given his decline in LVEF, can consider [employer] Life Vest wearable defibrillator at discharge for prevention of sudden cardiac from arrhythmia. Given CAD, NV -not revascularized, if LVEF remains < 35% 40 days post NV, would be a potential AICD candidate. We discussed these things and pt would like to think about them and discuss with his family before deciding about Life Vest. Disposition: follow up with me at [facility] 2 weeks post discharge. Echo after 40 day al post NV. Sharee Underwood, Laboratory Results Last 24 Hours Test 11/14/16 10:41 11/14/16 13:56 11/14/16 16:09 11/14/16 21:35 Bedside Glucose 239 mg/dl 275 mg/dl 154 mg/dl Prothrombin Time 10.9 SECONDS Prothromb Time International Ratio 1.0 Activated Partial Thromboplast Time 27.1 SECONDS Partial Thromboplastin Ratio 1.0 Test 11/15/16 05:45 11/15/16 06:30 White Blood Count 9.31 K/uL Red Blood Count 3.94 M/uL Hemoglobin 12.3 g/dL Hematocrit 36.9 % Mean Corpuscular Volume 93.7 fL Mean Corpuscular Hemoglobin 31.2 pg Mean Corpuscular Hemoglobin Concent 33.3 g/dl Platelet Count 160 K/uL Mean Platelet Volume 10.4 fL Neutrophils (%) (Auto) 82.8 % Lymphocytes (%) (Auto) 9.9 % Monocytes (%) (Auto) 6.8 % Eosinophils (%) (Auto) 0.1 % Basophils (%) (Auto) 0.1 % Neutrophils # (Auto) 7.71 K/uL Lymphocytes # (Auto) 0.92 K/uL Monocytes # (Auto) 0.63 K/uL Eosinophils # (Auto) 0.01 K/uL Basophils # (Auto) 0.01 K/uL RDW Standard Deviation 47.5 fL RDW Coefficient of Variation 13.9 % Immature Granulocyte % (Auto) 0.3 % Immature Granulocyte # (Auto) 0.03 K/uL Sodium Level 139 mmol/L Potassium Level 4.6 mmol/L Chloride Level 105 mmol/L Carbon Dioxide Level 26 mmol/L Anion Gap 8.0 mmol/L Blood Urea Nitrogen 29 mg/dl Creatinine 1.40 mg/dl Est Creatinine Clear Calc Drug Dose 49.7 ml/min Estimated GFR () 56.2 Estimated GFR (Non- 48.5 BUN/Creatinine Ratio 20.4 Random Glucose 226 mg/dl Calcium Level 8.2 mg/dl Total Bilirubin 0.7 mg/dl Direct Bilirubin 0.2 mg/dl Aspartate Amino Transf (AST/SGOT) 17 U/L Alanine Aminotransferase (ALT/SGPT) 36 U/L Alkaline Phosphatase 77 U/L Total Protein 6.8 gm/dl Albumin 3.5 gm/dl Bedside Glucose 221 mg/dl
[2016-11-15] MEDS: ENALAPRIL MALEATE 10 MG TAB PO SCH (11:41)
[2016-11-16 04:00] VITALS: BP 104/55; PULSE 72; TEMP 36.4; O2SAT 96
[2016-11-16 05:52] LABS: BASO % 0.3 %; BASO ABS # 0.03 K/uL (0-0.2); COMPLETE YES; EOS % 2.8 %; HEMATOCRIT 36.6 % (42-52); IG% 0.6 %; LYMPH ABS # 1.98 K/uL (1.2-3.4); MEAN CELL VOLUME 93.4 fL (80-100); MEAN CORPUSCULAR HEMOGLOBIN 32.1 pg (25-34); MEAN CORPUSCULAR HGB CONC 34.4 g/dl (32-36); MEAN PLATELET VOLUME 10.8 fL (7.4-10.4); MONO % 12.2 %; NEUT % 62.1 %; PLATELET COUNT 161 K/uL (130-400); RED BLOOD COUNT 3.92 M/uL (4.7-6.1); WHITE BLOOD COUNT 9.02 K/uL (4.8-10.8)
[2016-11-16 06:19] LABS: BUN/CREATININE RATIO 18.8 (10-20); CALCIUM 8.4 mg/dl (8.5-10.1); CREATININE 1.4 mg/dl (0.60-1.40)
[2016-11-16] MEDS: INSULIN ASPART 100 UNITS/ML 3 ML PEN SC SCH ×2 (06:40→11:41)
[2016-11-16 08:00] VITALS: BP 118/55; PULSE 83; TEMP 36.6; O2SAT 99
[2016-11-16] MEDS: ATORVASTATIN 40 MG TAB PO SCH (08:19)
[2016-11-16] MEDS: ASPIRIN 81 MG ECTAB PO SCH (08:19)
[2016-11-16] MEDS: ENALAPRIL MALEATE 10 MG TAB PO SCH (08:20)
[2016-11-16] MEDS: ISOSORBIDE MONONITRATE 60 MG TABCR PO SCH (08:20)
[2016-11-16] MEDS: CARVEDILOL 6.25 MG TAB PO SCH (08:20)
[2016-11-16] MEDS: CLOPIDOGREL BISULFATE 75 MG TAB PO SCH (08:20)
[2016-11-16] MEDS ORDERED: SPIRONOLACTONE 25 MG TAB PO ONE (09:45)
[2016-11-16] MEDS ORDERED: FUROSEMIDE 20 MG TAB PO ONE (09:45)
--- NOTE | 2016-11-16 09:46 | Progress Note ---
Post ICU Progress Note Date & Time Nov 16, 2016 at 09:18 Vital Signs Vital Signs Past 12 Hours Date Time Temp Pulse Resp B/P Pulse Ox O2 Delivery O2 Flow Rate FiO2 11/16/16 08:00 Room Air 11/16/16 08:00 36.6 83 18 118/55 99 Room Air 11/16/16 04:00 36.4 72 14 104/55 96 Room Air 11/16/16 04:00 Room Air 11/15/16 23:50 Room Air 11/15/16 23:49 36.5 69 12 105/58 96 Room Air Notes Mental Status: alert / awake, participated in evaluation Nausea / Vomiting: adequately controlled Pain: adequately controlled Airway Patency, RR, SpO2: stable & adequate BP & HR: stable & adequate Mr. Lugo is a 76yo male who presented for chest pain and respiratory distress on 11/11/16. Pt was apprehensive for invasive treatments and wanted to be treated medically for his unstable angina. He has a previous hx of CAD s/p CABGx4 in 1992. Pt was aggressively diuresis for his pulmonary congestion and ultimately did not need to be intubated. ECHO on 11/12 with EF of 30-30% with mod global hypokinesis of LV, mod LV and LA dilation. He was taken to the syrup machine laborer on 11/12/16, no intervention could be performed. Recommendations were to continue medical tx as poor outflow and occlusion to the 4th bypass were noted. Dr. Underwood is currently recommending a defibrillator vest on discharge; however, the pt is declining and stating he wants to see a claims counsel "friend " for a second opinion. He is also not interested in an internal defibrillator per recommendations. During his time in the ICU, Mr. Lugo underwent both a Left IJ central line and left arterial line on 11/12/16 which were discontinued on the 11/15. During period of time in the ICU, Heriberto was on Dobutamine, Heparin, and Nitro drips for stabilization. He is now off all IV medications and is without compliant. He has remained in the ICU since admission but was downgraded to telemetry status on 11/14. According the pt, he believe he is being discharged today this was not confirmed by nursing who understands that he may be kept an additional day per Dr. Underwood. Upon examining Mr. Hrubos today, he has no complaints and no pain. He is very much improved from his initial presentation. He is out of bed and walking around the room and halls. He is off of all O2 supplementation and is not complaining of any breathing problems or cough. He denies abd pain, nausea, constipation or diarrhea. He denied dizziness or lightheadedness with standing and moving. He reiterated to me that he does not wish to make any further cardiac decisions without the second opinion referenced above. He is excited to be leaving soon. There were no new acute findings on P.E. Consider outpatient follow up in 1 to 2 weeks with: Cardiology (Dr. Underwood) & Family Practice Provider Repeat imaging needed: Repeat ECHO Follow up cultures: N/A Reviewed progress notes, labs, and inpatient medication list Continue current management per cardiology Additional recommendations: None Pt is stable, Critical care will sign off at this time. Thank you for including us in the care of this pt, please feel free to reconsult as needed.
--- NOTE | 2016-11-16 09:58 | Cardiology Follow-Up ---
Subjective General Date of Service: Nov 16, 2016. Chief Complaint: follow up chest pain, shortness of breath Pt evaluation today including: conversation w/ patient, conversation w/ family , physical exam History of Present Illness The patient is a 76 year old male seen in follow up. Patient is out of bed and walking in his room. He feels well. He denies chest pain or shortness of breath. Telemetry reveals sinus rhythm without arrhythmia. Allergies Coded Allergies: No Known Allergies (Unverified , 11/11/16) Social History Smoking Status: Former Smoker (20 pack year hx quit in 80's) Hx Tobacco Use In Past Year?: No Hx Alcohol Use - Type And Amou: Yes (2 DRINKS 4-5 DAYS/WEEK) Hx Substance Use - Type And Am: No Problem List Medical Problems: (1) Acute pulmonary edema Status: Acute Physical Exam Vital Signs Last Vital Signs Documentation Date Time Temp Pulse Resp B/P Pulse Ox O2 Delivery O2 Flow Rate FiO2 11/16/16 08:00 Room Air 11/16/16 08:00 36.6 83 18 118/55 99 11/15/16 08:00 2.0 11/12/16 20:00 Physical Exam Constitutional: Level of Distress: NAD Head: normocephalic ENMT: normal ENT inspection Neck: supple Lungs: Auscultation: no wheezing, no rales/crackles, no rhonchi Cardiovascular: Heart Auscultation: RRR, no murmurs Abdomen: Inspection & Palpation: soft, non-distended, no tenderness, guarding & rebound Extremities: no edema Neurologic: Gait & Station: pertinent finding (no focal deficits ) Assessment and Plan Assessment and Plan Echocardiogram performed the admission on 11/12/16 -images reviewed independently Moderate to Severe Diffuse global LV hypokinesis is present with LVEF in the 30- 34% range, likely closer to 30% per my personal interpretation. Moderate left atrial enlargement Grade II diastolic dysfunction with Doppler evidence of increase LA/ LV filling pressure Mild MR IMPRESSION: 76 year old male with recent acute myocardial infarction, now with ischemic CM, LVEF <35% 1. Presented with symptoms of chest pressure and respiratory distress. Diagnosed with Non-ST segment elevation myocardial infarction, complicated by acute systolic heart failure, patient was initially managed conservatively with diuretic therapy and BiPAP, but his cardiac enzymes continued to climb with troponin peaking at 22.6 ng/mL on 11/12/16, 2:39 AM, patient ultimately underwent coronary angiography on 11/12/16 revealing severe pauma vessel disease, with patent SNOW to LAD patent SVG to OM, patent SVG to RCA with poor outflow noted to a small pauma RCA and diseased RCA distal to the anastomosis, and stump occlusion of an additional saphenous vein graft which is suspected to have been supplying the lateral wall via the obtuse marginal or diagonal. 2. Moderate LV systolic dysfunctionLV EF 30-34%, EF declined compared to previous echocardiogram from 2015. PLAN: Continue ASA, Plavix, Coreg, enalapril, and atorvastatin. Add furosemide 20 mg PO Daily, Aldactone 12.5 mg daily. I had a long discussion with the patient. I also spoke to his son, Arnie, by phone and summarized his hospital stay , findings, and plan. We discussed that given his decline in LVEF, would recommend [employer] Life Vest wearable defibrillator at discharge for prevention of sudden cardiac from arrhythmia. Given CAD, [place] -not revascularized, if LVEF remains < 35% 40 days post [place], would be a potential AICD candidate. Patient is uncertain if he would want to have an AICD if indicated, however, is open to trying the Life Vest. I have completed the referral order and will fax the information to [facility], I discussed his case with the security representative, Lili who offered to help expedite things for today if possible. Disposition: follow up with Cardiology Aicha Blair PA-C, Tuesday , 11/23/16, patient arrival 12:45 pm. Will plan on follow ing up with me as well in 3 weeks. Will arrange repeat transthoracic echocardiogram as oupatient to reassess LVEF after 40 days of medical therapy post [place]. Sharee Underwood, Laboratory Results Last 24 Hours Test 11/15/16 10:57 11/15/16 15:58 11/15/16 21:08 11/16/16 05:15 Bedside Glucose 265 mg/dl 222 mg/dl 188 mg/dl White Blood Count 9.02 K/uL Red Blood Count 3.92 M/uL Hemoglobin 12.6 g/dL Hematocrit 36.6 % Mean Corpuscular Volume 93.4 fL Mean Corpuscular Hemoglobin 32.1 pg Mean Corpuscular Hemoglobin Concent 34.4 g/dl Platelet Count 161 K/uL Mean Platelet Volume 10.8 fL Neutrophils (%) (Auto) 62.1 % Lymphocytes (%) (Auto) 22.0 % Monocytes (%) (Auto) 12.2 % Eosinophils (%) (Auto) 2.8 % Basophils (%) (Auto) 0.3 % Neutrophils # (Auto) 5.61 K/uL Lymphocytes # (Auto) 1.98 K/uL Monocytes # (Auto) 1.10 K/uL Eosinophils # (Auto) 0.25 K/uL Basophils # (Auto) 0.03 K/uL RDW Standard Deviation 48.2 fL RDW Coefficient of Variation 14.2 % Immature Granulocyte % (Auto) 0.6 % Immature Granulocyte # (Auto) 0.05 K/uL Sodium Level 142 mmol/L Potassium Level 4.0 mmol/L Chloride Level 106 mmol/L Carbon Dioxide Level 26 mmol/L Anion Gap 10.0 mmol/L Blood Urea Nitrogen 26 mg/dl Creatinine 1.40 mg/dl Est Creatinine Clear Calc Drug Dose 49.8 ml/min Estimated GFR () 56.2 Estimated GFR (Non- 48.5 BUN/Creatinine Ratio 18.8 Random Glucose 163 mg/dl Calcium Level 8.4 mg/dl Total Bilirubin 0.7 mg/dl Direct Bilirubin 0.2 mg/dl Aspartate Amino Transf (AST/SGOT) 16 U/L Alanine Aminotransferase (ALT/SGPT) 36 U/L Alkaline Phosphatase 73 U/L Total Protein 6.7 gm/dl Albumin 3.6 gm/dl Test 11/16/16 06:36 Bedside Glucose 154 mg/dl
[2016-11-16] MEDS: ENOXAPARIN 40 MG/0.4 ML SYR SQ SCH (10:02)
[2016-11-16] MEDS ORDERED: LSX20 PO (10:24)
[2016-11-16] MEDS ORDERED: POTA10TA PO (10:24)
[2016-11-16] MEDS ORDERED: SPR25 PO (10:24)
--- NOTE | 2016-11-16 10:27 | Discharge Instructions ---
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 Instructions / Follow-Up Instructions / Follow-Up . . start aldoctone and lasix daily with potassium supplements wear lifeVest follow up with Cardiology Aicha Blair PA-C, 11/23/16, patient arrival 12:45 pm. Will plan on follow ing up with me as well in 3 weeks. Will arrange repeat transthoracic echocardiogram as outpatient to reassess LVEF after 40 days of medical therapy post [place]. . . Current Hospital Diet Patient's current hospital diet: Diabetes Type 2 Diet, AHA Diet (Heart Healthy) Discharge Diet Recommended Diet: AHA Diet (Heart Healthy), Diabetes Type 2 Diet Procedures Procedures Performed: cardiac cath Pending Studies Studies pending at discharge: no Medical Emergencies . Who to Call and When: Medical Emergencies: If at any time you feel your situation is an emergency, please call 911 immediately. . Non-Emergent Contact Non-Emergency issues call your: Primary Care Provider Call Non-Emergent contact if: your pain is not controlled . Past History Medical & Surgical History: (1) Bypass graft stenosis (2) History of quadruple bypass . "Provider Documentation" section prepared by Socrates Ornelas. VTE Core Measure Inpt VTE Proph given/why not?: Other Anticoagulation
--- NOTE | 2016-11-16 10:38 | Discharge Summary ---
Discharge Summary Admission Date: Nov 11, 2016 at 18:56 Discharge Date: Nov 16, 2016 Discharge Disposition: Home Principal Diagnosis: graft occlusion Procedures: cardiac cath Consultations: cards Medication Reconciliation New Medications: Potassium Chloride (K-Tabs) 10 Meq Tab 10 MEQ PO DAILY, #30 TABS 3 Refills Furosemide (Furosemide) 20 Mg Tab 20 MG PO QAM, #90 TAB 3 Refills Spironolactone (Spironolactone) 25 Mg Tab 12.5 MG PO QAM, #90 TAB 3 Refills Continued Medications: Aspirin (Aspirin Ec) 81 Mg Tab 81 MG PO DAILY Atorvastatin (Lipitor) 80 Mg Tab 80 MG PO DAILY, TAB Carvedilol (Coreg) 6.25 Mg Tab 6.25 MG PO BID, TAB Clopidogrel (Plavix) 75 Mg Tab 75 MG PO DAILY, TAB Isosorbide Mononitrate Ext Rel (Imdur Ext Rel) 60 Mg Ertab 60 MG PO QAM, TAB Metformin Hcl (Glucophage) 1,000 Mg Tab 1000 MG PO BID, TAB Ramipril (Ramipril) 2.5 Mg Cap 2.5 MG PO DAILY Referrals At Discharge Follow up Referrals: Physician Referral - Within 1 Week with Leon Underwood D.O. Discharge Exam Review of Systems: Constitutional: No chills Respiratory: No sputum Abdomen: No pain Genitourinary - Male: No hematuria Neurologic: No memory loss Psychiatric: No depression symptoms Endocrine: No fatigue Integumentary: No rash Physical Exam: General Appearance: WD/WN, no apparent distress Eyes: normal inspection, EOMI ENT: hearing grossly normal, pharynx normal Neck: supple, no JVD Respiratory/Chest: chest non-tender, normal breath sounds Cardiovascular: no edema, no gallop Abdomen / GI: soft Extremities: no calf tenderness Neurologic/Psychiatric: alert Skin: warm/dry Hospital Course 76 y/o M who was admitted on 11/11 with chest pain and SOB CP/SOB: Improved with lasix and thought possibly related to CHF given neg trop Pt with hx of CAD s/p CABG Cath report noted, unable to stent due to occluded bypass vein Heparin IV was given for 48 hours which completed yesterday Talked to Dr Underwood, patient will get LifeVest today and will try it at home start lasix with aldoctone daily, potassium supplements follow up with Cardiology Aicha Blair PA-C, 11/23/16, patient arrival 12:45 pm. Will plan on follow ing up with me as well in 3 weeks. Will arrange repeat transthoracic echocardiogram as oupatient to reassess LVEF after 40 days of medical therapy post [place]. HypoTN: off dobutamine,-likely vasovagal, improved DM: Stable, SSI PRN Holding metformin HTN: restart home meds Other: Full code f/u PCP 2 weeks Total Time Spent: Greater than 30 minutes This includes examination of the patient, discharge planning, medication reconciliation, and communication with other providers. Discharge Instructions Please refer to the electronic Patient Visit Report (Discharge Instructions) for additional information. Additional Copies To Leon Underwood D.O.
[2016-11-16 12:00] VITALS: BP 110/57; PULSE 70; TEMP 36.9; O2SAT 99
[2016-11-16 13:02] VITALS: BP 110/57; PULSE 70; TEMP 36.9; O2SAT 99
[2016-11-17] MEDS ORDERED: SPIRONOLACTONE 25 MG TAB PO SCH (09:00)
[2016-11-17] MEDS ORDERED: FUROSEMIDE 20 MG TAB PO SCH (09:00)
== END 2016-11-16 15:10 | disposition home or self-care (01) | DRG 280 ==
LOC: ENRESERVDT → ENRESERVTM → C.EDB 17:30 → C.MSICU 18:56
PROVIDERS: ADMIT Internal Medicine; ATTEND Hospitalist
PROC: 02HV33Z Insertion of Infusion Device into Superior Vena Cava, Percutaneous Approach (ICD-10-PCS; 2016-11-11)
PROC: 03HY32Z Insertion of Monitoring Device into Upper Artery, Percutaneous Approach (ICD-10-PCS; 2016-11-12)
PROC: B2111ZZ Fluoroscopy of Multiple Coronary Arteries using Low Osmolar Contrast (ICD-10-PCS; principal; 2016-11-12 14:54)
PROC: 4A023N7 Measurement of Cardiac Sampling and Pressure, Left Heart, Percutaneous Approach (ICD-10-PCS; principal; 2016-11-12 14:54)
PROC: B2131ZZ Fluoroscopy of Multiple Coronary Artery Bypass Grafts using Low Osmolar Contrast (ICD-10-PCS; principal; 2016-11-12 14:54)
DX: I25.710 Atherosclerosis of autologous vein coronary artery bypass graft(s) with unstable angina pectoris (principal); I21.4 Non-ST elevation (NSTEMI) myocardial infarction; J96.01 Acute respiratory failure with hypoxia; I50.20 Unspecified systolic (congestive) heart failure; R57.0 Cardiogenic shock; E27.40 Unspecified adrenocortical insufficiency; K21.9 Gastro-esophageal reflux disease without esophagitis; I12.9 Hypertensive chronic kidney disease with stage 1 through stage 4 chronic kidney disease, or unspecified chronic kidney disease; N18.9 Chronic kidney disease, unspecified; E11.21 Type 2 diabetes mellitus with diabetic nephropathy; Z95.1 Presence of aortocoronary bypass graft; Z83.3 Family history of diabetes mellitus; I25.10 Atherosclerotic heart disease of native coronary artery without angina pectoris; I95.9 Hypotension, unspecified; Z79.82 Long term (current) use of aspirin; Z82.49 Family history of ischemic heart disease and other diseases of the circulatory system; E11.65 Type 2 diabetes mellitus with hyperglycemia